=== PATIENT | female | born 1950 | race American Indian/Alaskan Native ===

== ENCOUNTER 2020-06-04 18:31 | Observation (INO) | payer MEDICARE ==
[2020-06-04] MEDS ORDERED: ASPIRIN 325 MG TAB PO ONE (19:58)
[2020-06-04 20:16] LABS: Basophils % (Auto) 0.5 % (0.0-1.8); Hematocrit 38.5 % (30.3-42.9); Hemoglobin 12.7 gm/dl (10.1-14.3); Lymphocytes # (Auto) 0.6 K/mm3 (1.2-5.4); Lymphocytes % (Auto) 7.8 % (13.4-35.0); Mean Corpuscular HGB Conc 33 % (30-34); Mean Corpuscular Volume 99 fl (79-97); Monocytes # (Auto) 0.4 K/mm3 (0.0-0.8); Platelet Count 264 K/mm3 (140-440); Red Blood Count 3.88 M/mm3 (3.65-5.03); Red Cell Distribution Width 14.9 % (13.2-15.2)
[2020-06-04 20:47] LABS: Blood Urea Nitrogen 14 mg/dL (7-17); Calcium 9.7 mg/dL (8.4-10.2); Hemolysis Index 15
[2020-06-04 20:52] LABS: BUN/Creatinine Ratio 35
--- NOTE | 2020-06-04 20:57 | XRay Report ---
CHEST 1 VIEW INDICATION / CLINICAL INFORMATION: Chest Pain. COMPARISON: None available. FINDINGS: SUPPORT DEVICES: None. HEART / MEDIASTINUM: No significant abnormality. LUNGS / PLEURA: No significant pulmonary or pleural abnormality. No pneumothorax. ADDITIONAL FINDINGS: No significant additional findings. IMPRESSION: No acute pulmonary or pleural abnormality Signer Name: Yung Jarquin MD FACR Signed: 06/04/2020 8:52 PM Workstation Name: [id number]
--- NOTE | 2020-06-04 21:40 | Emergency Department Report ---
ED Chest Pain HPI - General Chief Complaint: Chest Pain Stated Complaint: CHEST PAIN;EPIGASTRIC PAIN PUI?: Yes Time Seen by Provider: 06/04/20 21:28 Source: patient Mode of arrival: Stretcher Limitations: No Limitations - History of Present Illness Initial Comments: Patient is a 70-year-old female that presents emergency room with complaints of chest pain, shortness of breath, abdominal pain and constipation. Patient also complains of nausea.. Patient states that her symptoms started a week ago. Patient states that she was seen in another hospital and evaluated and discharged home 1 week ago. States her symptoms are continuing and worsening. Patient states the chest pain is in the center of her chest and left chest. Patient states that her chest pain is better with rest and worse with palpation. Patient states her chest pain is a 10 out of 10. Patient states her shortness of breath better with rest and worse with exertion. Patient states that her abdominal pain is generalized. Patient states that her abdominal pain is a 10 out of 10. Patient states that she has not had a bowel movement for 1 week. Patient states that her nausea is worsening. Patient states she took Dulcolax with no relief. Patient denies recent travel. Patient denies recent international travel. Patient denies exposure to the novel coronavirus. Patient denies sick contacts. Patient denies fever and chills. Patient denies cough. Patient denies diarrhea. Patient denies coming in contact with anybody with symptoms of the novel coronavirus. MD Complaint: chest pain -: Sudden Onset: during rest Pain Location: substernal, left chest Pain Radiation: none Severity: severe Severity scale (0 -10): 10 Quality: sharp Consistency: constant Improves With: rest Worsens With: palpation, movement re: nausea, dyspnea. denies: vomting, diaphoresis, sense of impending doom Other Symptoms: denies: cough, fever, syncope, rash, acid taste in mouth, leg swelling, palpitations, burping Aspirin use within the Past 7 Days: (1) Yes - Related Data On Oral Contraceptives: No Home Medications Medication Instructions Recorded Confirmed Last Taken Alendronate Sodium [Fosamax] 70 mg PO QWEEK 05/15/15 05/15/15 1 Day Ago ~09/17/15 70 Gabapentin [Neurontin] 300 mg PO Q8HR 05/15/15 05/15/15 1 Day Ago ~09/17/15 300 Potassium Chloride [K-Dur] 10 meq PO QDAY 05/15/15 05/15/15 1 Day Ago ~09/17/15 10 Vitamin D 05/15/15 05/15/15 1 Day Ago ~09/17/15 Previous Rx's Medication Instructions Recorded Last Taken Type Nitrofurantoin [place]/M-Cryst 100 mg PO Q12HR #14 capsule 05/16/15 1 Day Ago Rx [Macrobid CAP] ~09/17/15 100 HYDROcodone/APAP 5-325 [[place] 1 each PO Q8HR PRN #12 tablet 09/18/15 Unknown Rx 5/325] Ibuprofen [Motrin 800 MG tab] 800 mg PO Q8HR PRN #20 tablet 04/21/16 Unknown Rx Ondansetron [Zofran ODT TAB] 8 mg PO Q8HR #20 tab.rapdis 04/21/16 Unknown Rx oxyCODONE /ACETAMINOPHEN [Percocet 1 tab PO Q6HR PRN #20 tablet 04/21/16 Unknown Rx 5/325] Allergies Allergy/AdvReac Type Severity Reaction Status Date / Time No Known Allergies Allergy Verified 07/29/14 21:24 Heart Score - HEART Score History: Slightly suspicious EKG: Non-specific Age: > 65 Risk factors: No known risk factors Troponin: < normal limit HEART Score: 3 ED Review of Systems ROS: Stated complaint: CHEST PAIN;EPIGASTRIC PAIN Other details as noted in HPI Constitutional: denies: chills, fever Eyes: denies: eye pain, eye discharge, vision change ENT: denies: ear pain, throat pain Respiratory: see HPI, shortness of breath. denies: cough, wheezing Cardiovascular: as per HPI, chest pain. denies: palpitations Endocrine: no symptoms reported Gastrointestinal: abdominal pain, nausea, constipation. denies: vomiting, diarrhea Genitourinary: denies: urgency, dysuria, discharge Musculoskeletal: denies: back pain, joint swelling, arthralgia Skin: denies: rash, lesions Neurological: denies: headache, weakness, paresthesias Psychiatric: denies: anxiety, depression Hematological/Lymphatic: denies: easy bleeding, easy bruising ED Past Medical Hx - Past Medical History Previous Medical History?: Yes Hx Kidney Stones: Yes Additional medical history: chronic pain. peptic ulcers. Neuropathy - Surgical History Past Surgical History?: Yes Additional Surgical History: right knee, hysterectomy, left ovarian cyst removal - Family History Family history: no significant - Social History Smoking Status: Never Smoker Substance Use Type: None - Medications Home Medications: Home Medications Medication Instructions Recorded Confirmed Last Taken Type Alendronate Sodium [Fosamax] 70 mg PO QWEEK 05/15/15 05/15/15 1 Day Ago History ~09/17/15 70 Gabapentin [Neurontin] 300 mg PO Q8HR 05/15/15 05/15/15 1 Day Ago History ~09/17/15 300 Potassium Chloride [K-Dur] 10 meq PO QDAY 05/15/15 05/15/15 1 Day Ago History ~09/17/15 10 Vitamin D 05/15/15 05/15/15 1 Day Ago History ~09/17/15 Nitrofurantoin [place]/M-Cryst 100 mg PO Q12HR #14 capsule 05/16/15 1 Day Ago Rx [Macrobid CAP] ~09/17/15 100 HYDROcodone/APAP 5-325 [[place] 1 each PO Q8HR PRN #12 tablet 09/18/15 Unknown Rx 5/325] Ibuprofen [Motrin 800 MG tab] 800 mg PO Q8HR PRN #20 tablet 04/21/16 Unknown Rx Ondansetron [Zofran ODT TAB] 8 mg PO Q8HR #20 tab.rapdis 04/21/16 Unknown Rx oxyCODONE /ACETAMINOPHEN [Percocet 1 tab PO Q6HR PRN #20 tablet 04/21/16 Unknown Rx 5/325] ED Physical Exam - General Limitations: No Limitations General appearance: alert, in no apparent distress - Head Head exam: Present: atraumatic, normocephalic - Eye Eye exam: Present: normal appearance - ENT ENT exam: Present: mucous membranes moist - Neck Neck exam: Present: normal inspection - Respiratory Respiratory exam: Present: normal lung sounds bilaterally. Absent: respiratory distress - Cardiovascular Cardiovascular Exam: Present: regular rate, normal rhythm. Absent: systolic murmur, diastolic murmur, rubs, gallop - GI/Abdominal GI/Abdominal exam: Present: soft, tenderness (Generalized tenderness), normal bowel sounds - Extremities Exam Extremities exam: Present: normal inspection - Back Exam Back exam: Present: normal inspection - Neurological Exam Neurological exam: Present: alert, oriented X3 - Psychiatric Psychiatric exam: Present: normal affect, normal mood - Skin Skin exam: Present: warm, dry, intact, normal color. Absent: rash ED Course Vital Signs 06/04/20 06/04/20 06/04/20 19:44 21:46 22:00 Temperature 99.1 F Pulse Rate 83 81 89 Respiratory 18 17 13 Rate Blood Pressure 148/75 136/64 141/57 Blood Pressure [Left] O2 Sat by Pulse 100 98 98 Oximetry 06/04/20 06/04/20 06/04/20 22:07 22:16 22:30 Temperature Pulse Rate 71 77 75 Respiratory 22 18 17 Rate Blood Pressure 129/65 129/65 Blood Pressure 167/74 [Left] O2 Sat by Pulse 99 98 98 Oximetry 06/04/20 06/04/20 06/04/20 22:45 23:01 23:15 Temperature Pulse Rate 86 89 76 Respiratory 20 21 19 Rate Blood Pressure 106/67 132/63 132/63 Blood Pressure [Left] O2 Sat by Pulse 100 98 Oximetry 06/04/20 06/04/20 06/04/20 23:30 23:31 23:45 Temperature Pulse Rate 79 72 Respiratory 20 18 14 Rate Blood Pressure 120/55 120/55 Blood Pressure [Left] O2 Sat by Pulse 100 Oximetry 06/05/20 06/05/20 00:01 00:31 Temperature Pulse Rate 61 57 L Respiratory 14 11 L Rate Blood Pressure 120/55 120/55 Blood Pressure [Left] O2 Sat by Pulse Oximetry - Reevaluation(s) Reevaluation #1: Patient chest pain improved with Dilaudid. Patient states her nausea is better. Patient states she still having abdominal pain. CT is pending 06/04/20 22:24 Reevaluation #2: Patient states her pain is returning. Patient be given a low dose of Dilaudid. I discussed all results with patient. I discussed plan of care with patient. Patient agrees with plan of care and admission. Patient to be admitted to the hospitalist service. 06/04/20 23:25 - Consultations Consultation #1: Hospitalist consulted for admission. Hospitalist to admit patient. 06/04/20 23:25 SHERIF score - Sherif Score Age > 65: (1) Yes Aspirin use within the Past 7 Days: (1) Yes 3 or more CAD Risk Factors: (0) No 2 or more Angina events in past 24 hrs: (1) Yes Known CAD with more than 50% Stenosis: (0) No Elevated Cardiac Markers: (0) No ST Deviation Greater than 0.5mm: (0) No SHERIF Score: 3 ED Medical Decision Making - Lab Data Result diagrams: 06/04/20 20:05 06/04/20 20:05 - EKG Data -: EKG Interpreted by Me EKG shows normal: sinus rhythm, axis, intervals, QRS complexes, ST-T waves Rate: normal - Radiology Data Radiology results: report reviewed, image reviewed interpreted by me: Chest x-ray: No pneumonia, no pneumothorax, no foreign body, no osseous findings, no acute findings CHEST 1 VIEW INDICATION / CLINICAL INFORMATION: Chest Pain. COMPARISON: None available. FINDINGS: SUPPORT DEVICES: None. HEART / MEDIASTINUM: No significant abnormality. LUNGS / PLEURA: No significant pulmonary or pleural abnormality. No pneumothorax. ADDITIONAL FINDINGS: No significant additional findings. IMPRESSION: No acute pulmonary or pleural abnormality CT OF THE ABDOMEN AND PELVIS WITH INTRAVENOUS CONTRAST INDICATION / CLINICAL INFORMATION: Abdominal pain. TECHNIQUE: The patient received 100 cc Omnipaque [address] scans at this location are performed using CT dose reduction for ALARA by means of automated exposure control. COMPARISON: 04/21/16. FINDINGS: ABDOMEN: The liver, spleen, gallbladder, bile ducts, pancreas, adrenal glands and bowel demonstrate no significant abnormality. There are multiple small bilateral nonobstructive renal calculi. 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 There are mild atherosclerotic calcifications involving aorta and its branches without aneurysm. No adenopathy is seen. PELVIS: The distal ureters and urinary bladder are normal. The uterus and ovaries are not seen. There is no evidence of appendicitis or diverticulitis. No abnormal mass or fluid collection is seen. I do not identify a hernia. There is advanced spondylosis. IMPRESSION: 1. No acute intra-abdominal disease is identified. 2. Bilateral nonobstructive nephrolithiasis. CT ANGIOGRAPHY OF THE CHEST WITH INTRAVENOUS CONTRAST AND MULTIPLANAR MIP RECONSTRUCTIONS INDICATION / CLINICAL INFORMATION: Chest pain and shortness of breath. TECHNIQUE: Axial CT images were obtained after injection of 100 cc Omnipaque 350 IV contrast using CTA protocol. 3 plane MIP / 3D reconstructions were produced. All CT scans at this location are performed using CT dose reduction for ALARA by means of automated exposure control. COMPARISON: None available. FINDINGS: There is good opacification of the pulmonary arterial system bilaterally without intraluminal filling defect to suggest acute PTE. The thoracic aorta is normal in caliber without dissection. There is mild coronary artery calcification. The tracheobronchial tree is normal. There is mild scarring in both lung apices. Minimal subsegmental atelectasis is present in the lower lobes. The lungs are otherwise clear. There is no evidence of adenopathy or effusion. IMPRESSION: 1. No evidence of acute PTE. 2. Mild coronary artery calcification. - Medical Decision Making Patient is a 70-year-old female*complaints of chest pain, shortness of breath and abdominal pain. Patient also complained of nausea and constipation. Patient had labs done which were essentially unremarkable. Patient had a CT abdomen and CT angio chest. Patient's CTs were negative for acute findings. Patient had CT of the abdomen to rule out a small bowel obstruction . Nausea and constipation and abdominal pain. Patient was tender on exam to her abdomen. Patient had a CTA of the chest since the patient complained of chest pain or shortness of breath and had such severe chest pain and difficulty breathing. Patient's chest pain and abdominal pain were treated with fluids, Dilaudid and Zofran. Patient required 2 doses of Dilaudid. Patient still complains of pain. Patient admitted to the hospital service for further evaluation and treatment and rule out ACS. Patient's heart score was elevated.. . - Differential Diagnosis Chest pain, ACS, S OB, abdominal pain, SBO, constipation Critical Care Time: Yes Critical care time in (mins) excluding proc time.: 35 Critical care attestation.: If time is entered above; I have spent that time in minutes in the direct care of this critically ill patient, excluding procedure time. Critical Care Time: 35 minutes ED Disposition Clinical Impression: SOB (shortness of breath), Acute constipation, Nausea Abdominal pain Qualifiers: Abdominal location: generalized Qualified Code(s): R10.84 - Generalized abdominal pain Chest pain Qualifiers: Chest pain type: unspecified Qualified Code(s): R07.9 - Chest pain, unspecified Disposition: 09 OP ADMIT IP TO THIS HOSP Is pt being admited?: Yes Does the pt Need Aspirin: No Condition: Critical Time of Disposition: 23:23
[2020-06-04] MEDS ORDERED: ONDANSETRON 4 MG/2 ML INJ IV ONE (21:49)
[2020-06-04] MEDS ORDERED: HYDROmorphone 1 MG/1 ML INJ IV ONE ×2 (21:49→23:46)
[2020-06-04] MEDS ORDERED: SODIUM CHLORIDE 0.9% 1000 ML 1,000 ML IV ONE (21:49)
--- NOTE | 2020-06-04 22:59 | Cat Scan Report ---
CT ANGIOGRAPHY OF THE CHEST WITH INTRAVENOUS CONTRAST AND MULTIPLANAR MIP RECONSTRUCTIONS INDICATION / CLINICAL INFORMATION: Chest pain and shortness of breath. TECHNIQUE: Axial CT images were obtained after injection of 100 cc Omnipaque 350 IV contrast using CTA protocol. 3 plane MIP / 3D reconstructions were produced. All CT scans at this location are performed using CT dose reduction for ALARA by means of automated exposure control. COMPARISON: None available. FINDINGS: There is good opacification of the pulmonary arterial system bilaterally without intraluminal filling defect to suggest acute PTE. The thoracic aorta is normal in caliber without dissection. There is mi ld coronary artery calcification. The tracheobronchial tree is normal. There is mild scarring in both lung apices. Minimal subsegmental atelectasis is present in the lower lobes. The lungs are otherwise clear. There is no evidence of ad enopathy or effusion. IMPRESSION: 1. No evidence of acute PTE. 2. Mild coronary artery calcification. Signer Name: Alber Jameson MD Signed: 06/04/2020 10:55 PM Workstation Name: [id number]
--- NOTE | 2020-06-04 23:04 | Cat Scan Report ---
CT OF THE ABDOMEN AND PELVIS WITH INTRAVENOUS CONTRAST INDICATION / CLINICAL INFORMATION: Abdominal pain. TECHNIQUE: The patient received 100 cc Omnipaque [address] scans at this location are performed using CT dose reduction for ALARA by means of automated exposure control. COMPARISON: 04/21/16. FINDINGS: ABDOMEN: The liver, spleen, gallbladder, bile ducts, pancreas, adrenal glands and bowel demonstrate n o significant abnormality. There are multiple small bilateral nonobstructive renal calculi. 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 There are mild atherosclerotic calcificat ions involving aorta and its branches without aneurysm. No adenopathy is seen. PELVIS: The distal ureters and urinary bladder are normal. The uterus and ovaries are not seen. There is no evidence of appendicitis or diverticulitis. No abnormal mass or fluid collection is seen. I do not identify a hernia. There is advanced spondylosis. IMPRESSION: 1. No acute intra-abdominal disease is identified. 2. Bilateral nonobstructive nephrolithiasis. Signer Name: Alber Jameson MD Signed: 06/04/2020 10:59 PM Workstation Name: [id number]
[2020-06-05] MEDS ORDERED: MORPHINE 4 MG/1 ML INJ IV PRN (00:16)
[2020-06-05] MEDS ORDERED: NITROGLYCERIN 0.4 MG TAB SUBL SL PRN (00:16)
--- NOTE | 2020-06-05 00:24 | History and Physical Report ---
History of Present Illness Date of examination: 06/05/20 Date of admission: 06/04/20 23:47 Chief complaint: Chest pain Abdominal pain History of present illness: 70-year-old female was brought to emergency room with complaints of chest pain, shortness of breath, abdominal pain and constipation. Patient also complains of nausea. Patient complained of chest pain which is 10/10 in the center of the chest and left chest as stated shortness of breath for a week Patient states that she was seen in another hospital and evaluated and discharged home 1 week ago. States her symptoms are continuing and worsening. Patient states that her abdominal pain is generalized. Patient states that her abdominal pain is a 10 out of 10. Patient states that she has not had a bowel movement for 1 week. Patient states that her nausea is worsening. Patient states she took Dulcolax with no relief. In the emergency room initial cardiac enzyme is negative. And CT scan of the abdomen pelvis shows no acute intra-abdominal abnormality Medications and Allergies Allergies Allergy/AdvReac Type Severity Reaction Status Date / Time No Known Allergies Allergy Verified 07/29/14 21:24 Home Medications Medication Instructions Recorded Confirmed Last Taken Type Alendronate Sodium [Fosamax] 70 mg PO QWEEK 05/15/15 05/15/15 1 Day Ago History ~09/17/15 70 Gabapentin [Neurontin] 300 mg PO Q8HR 05/15/15 05/15/15 1 Day Ago History ~09/17/15 300 Potassium Chloride [K-Dur] 10 meq PO QDAY 05/15/15 05/15/15 1 Day Ago History ~09/17/15 10 Vitamin D 05/15/15 05/15/15 1 Day Ago History ~09/17/15 Nitrofurantoin [place]/M-Cryst 100 mg PO Q12HR #14 capsule 05/16/15 1 Day Ago Rx [Macrobid CAP] ~09/17/15 100 HYDROcodone/APAP 5-325 [[place] 1 each PO Q8HR PRN #12 tablet 09/18/15 Unknown Rx 5/325] Ibuprofen [Motrin 800 MG tab] 800 mg PO Q8HR PRN #20 tablet 04/21/16 Unknown Rx Ondansetron [Zofran ODT TAB] 8 mg PO Q8HR #20 tab.rapdis 04/21/16 Unknown Rx oxyCODONE /ACETAMINOPHEN [Percocet 1 tab PO Q6HR PRN #20 tablet 04/21/16 Unknown Rx 5/325] Review of Systems Cardiovascular: chest pain, shortness of breath Respiratory: dyspnea on exertion Gastrointestinal: abdominal pain, nausea Exam - Constitutional Vitals: Temp Pulse Resp BP Pulse Ox 99.1 F 61 14 120/55 100 06/04/20 19:44 06/05/20 00:01 06/05/20 00:01 06/05/20 00:01 06/04/20 23:31 General appearance: Present: no acute distress, well-nourished - EENT Eyes: Present: PERRL ENT: hearing intact, clear oral mucosa - Neck Neck: Present: supple, normal ROM - Respiratory Respiratory effort: normal Respiratory: bilateral: diminished - Cardiovascular Heart Sounds: Present: S1 & S2. Absent: rub, click - Extremities Extremities: pulses symmetrical, No edema Peripheral Pulses: within normal limits - Abdominal General gastrointestinal: Present: soft, non-tender, non-distended, normal bowel sounds Female genitourinary: Present: normal - Integumentary Integumentary: Present: clear, warm, dry - Musculoskeletal Musculoskeletal: gait normal, strength equal bilaterally - Psychiatric Psychiatric: appropriate mood/affect, intact judgment & insight - Neurologic Neurologic: CNII-XII intact, moves all extremities HEART Score - HEART Score EKG: Non-specific Age: > 65 Risk factors: No known risk factors Troponin: Troponin T < 0.010 ng/mL (0.00-0.029) 06/04/20 20:05 Troponin: < normal limit Results - Labs CBC & Chem 7: 06/04/20 20:05 06/04/20 20:05 Labs: Laboratory Last Values WBC 7.3 K/mm3 (4.5-11.0) 06/04/20 20:05 RBC 3.88 M/mm3 (3.65-5.03) 06/04/20 20:05 Hgb 12.7 gm/dl (10.1-14.3) 06/04/20 20:05 Hct 38.5 % (30.3-42.9) 06/04/20 20:05 MCV 99 fl (79-97) H 06/04/20 20:05 MCH 33 pg (28-32) H 06/04/20 20:05 MCHC 33 % (30-34) 06/04/20 20:05 RDW 14.9 % (13.2-15.2) 06/04/20 20:05 Plt Count 264 K/mm3 (140-440) 06/04/20 20:05 Lymph % (Auto) 7.8 % (13.4-35.0) L 06/04/20 20:05 [place] % (Auto) 5.0 % (0.0-7.3) 06/04/20 20:05 Eos % (Auto) 0.0 % (0.0-4.3) 06/04/20 20:05 Baso % (Auto) 0.5 % (0.0-1.8) 06/04/20 20:05 Lymph # (Auto) 0.6 K/mm3 (1.2-5.4) L 06/04/20 20:05 [place] # (Auto) 0.4 K/mm3 (0.0-0.8) 06/04/20 20:05 Eos # (Auto) 0.0 K/mm3 (0.0-0.4) 06/04/20 20:05 Baso # (Auto) 0.0 K/mm3 (0.0-0.1) 06/04/20 20:05 Seg Neutrophils % 86.7 % (40.0-70.0) H 06/04/20 20:05 Seg Neutrophils # 6.3 K/mm3 (1.8-7.7) 06/04/20 20:05 Sodium 145 mmol/L (137-145) 06/04/20 20:05 Potassium 3.6 mmol/L (3.6-5.0) 06/04/20 20:05 Chloride 104.3 mmol/L (98-107) 06/04/20 20:05 Carbon Dioxide 27 mmol/L (22-30) 06/04/20 20:05 Anion Gap 17 mmol/L 06/04/20 20:05 BUN 14 mg/dL (7-17) 06/04/20 20:05 Creatinine 0.4 mg/dL (0.6-1.2) L 06/04/20 20:05 Estimated GFR > 60 ml/min 06/04/20 20:05 BUN/Creatinine Ratio 35 % 06/04/20 20:05 Glucose 117 mg/dL (65-100) H 06/04/20 20:05 Calcium 9.7 mg/dL (8.4-10.2) 06/04/20 20:05 Troponin T < 0.010 ng/mL (0.00-0.029) 06/04/20 20:05 - Imaging and Cardiology CT scan - abdomen: image reviewed Assessment and Plan - Patient Problems (1) Chest pain Current Visit: Yes Status: Acute Qualifiers: Chest pain type: unspecified Qualified Code(s): R07.9 - Chest pain, unspecified Plan to address problem: Admit the patient to the cardiac telemetry. Put on chest pain pathway. Aspirin 325 mg p.o. daily. Lipitor 40 mg p.o. daily. Nitroglycerin as needed. Due to the serial cardiac enzyme. We also do a Lexiscan. Please consult cardiology if needed. Heparin 5000 units subcu every 8 hours for DVT prophylaxis and Protonix 40 mg p.o. daily for GI prophylaxis. (2) SOB (shortness of breath) Current Visit: Yes Status: Acute Plan to address problem: Oxygen valacyclovir 3 L/min. DuoNeb by nebulizer every 4 hours as needed. We will monitor the patient very closely (3) Abdominal pain Current Visit: Yes Status: Acute Qualifiers: Abdominal location: generalized Plan to address problem: Keep the patient nothing by mouth. IV fluid D5 half-normal saline at the rate of 100 cc/h. Protonix 40 mg p.o. daily. Zofran 4 mg IV every 6 hours as needed. Morphine 1 to 2 mg IV every [address] scan of the abdomen and pelvis shows no acute intracranial abnormality. Recheck CBC BMP in the morning
[2020-06-05 02:25] LABS: Bacteria,Urine 2+ /HPF (Negative); Bilirubin,Urine NEG (Negative); Blood,Urine SM (Negative); Color,Urine Yellow (Yellow); Mucus,Urine FEW /HPF; Urobilinogen,Urine < 2.0 mg/dL (<2.0)
[2020-06-05] MEDS: D5W/0.45% NACL 1,000 ML IV SCH ×2 (02:52→11:41)
[2020-06-05 04:52] LABS: Basophils % (Auto) 0.3 % (0.0-1.8); Hematocrit 36.9 % (30.3-42.9); Hemoglobin 12.3 gm/dl (10.1-14.3); Lymphocytes % (Auto) 14.1 % (13.4-35.0); Mean Corpuscular HGB Conc 33 % (30-34); Mean Corpuscular Volume 99 fl (79-97); Monocytes # (Auto) 0.6 K/mm3 (0.0-0.8); Monocytes % (Auto) 8.9 % (0.0-7.3); Platelet Count 259 K/mm3 (140-440); Red Blood Count 3.73 M/mm3 (3.65-5.03)
[2020-06-05 05:53] LABS: BUN/Creatinine Ratio 25; Blood Urea Nitrogen 10 mg/dL (7-17); Calcium 8.9 mg/dL (8.4-10.2); Chol/HDL Ratio 3.44 %; HDL Cholesterol 61 mg/dL (40-59); Hemolysis Index 2; LDL Cholesterol,Direct 152 mg/dL (50-130)
[2020-06-05] MEDS: HEPARIN 5,000 UNIT/1 ML VIAL SUB-Q SCH ×3 (06:41→21:43)
[2020-06-05] MEDS: ONDANSETRON 4 MG/2 ML INJ IV PRN (07:57)
--- NOTE | 2020-06-05 08:02 | Progress Note ---
Assessment and Plan Assessment and plan: (1) Chest pain Current Visit: Yes Status: Acute Qualifiers: Chest pain type: unspecified Qualified Code(s): R07.9 - Chest pain, unspecified Plan to address problem: Admit the patient to the cardiac telemetry. Put on chest pain pathway. Aspirin 325 mg p.o. daily. Lipitor 40 mg p.o. daily. Nitroglycerin as needed. Due to the serial cardiac enzyme. We also do a Lexiscan. Heparin 5000 units subcu every 8 hours for DVT prophylaxis and Protonix 40 mg p.o. daily for GI prophylaxis. (2) SOB (shortness of breath) Current Visit: Yes Status: Acute Plan to address problem: Oxygen 3 L/min via intranasal cannula. DuoNeb by nebulizer every 4 hours as nee ded. We will monitor the patient very closely (3) Abdominal pain Current Visit: Yes Status: Acute Qualifiers: Abdominal location: generalized Plan to address problem: Keep the patient nothing by mouth. IV fluid D5 half-normal saline at the rate of 100 cc/h. Protonix 40 mg p.o. daily. Zofran 4 mg IV every 6 hours as needed. Morphine 1 to 2 mg IV every [address] scan of the abdomen and pelvis shows no acute intracranial abnormality. Recheck CBC BMP in the morning 06/05/2020 -CT abdomen and pelvis, CTA chest is unremarkable. Labs are unremarkable. Baldemar najera is still complaining severe abdominal pain. I change morphine to Dilaudid, and ketorolac, I ordered KUB and will follow. -We we will follow the stress test. -Patient with hyperlipidemia and on Lipitor Disposition; per clinical course History Interval history: Patient was seen and evaluated this morning Patient is complaining severe abdominal pain Chest pain is getting better Hospitalist Physical - Physical exam Narrative exam: Not in cardiopulmonary distress. The patient appeared well nourished and normally developed. Vital signs as documented. Head exam is unremarkable. No scleral icterus . Neck is without jugular venous distension, thyromegaly, or carotid bruits. Lungs are clear to auscultation. Cardiac exam reveals regular rate and Rhythm. Abdominal exam reveals abdominal tenderness. Extremities are nonedematous and both femoral and pedal pulses are normal. 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 No focal weakness. - Constitutional Vitals: Temp Pulse Resp BP Pulse Ox 98.8 F 57 L 16 137/58 98 06/05/20 04:38 06/05/20 04:38 06/05/20 04:38 06/05/20 04:38 06/05/20 04:38 General appearance: Present: no acute distress, well-nourished HEART Score - HEART Score EKG: Non-specific Age: > 65 Risk factors: No known risk factors Troponin: Troponin T < 0.010 ng/mL (0.00-0.029) 06/05/20 06:01 Troponin: < normal limit Results - Labs CBC & Chem 7: 06/05/20 04:17 06/05/20 04:17 Labs: Laboratory Last Values WBC 6.8 K/mm3 (4.5-11.0) 06/05/20 04:17 RBC 3.73 M/mm3 (3.65-5.03) 06/05/20 04:17 Hgb 12.3 gm/dl (10.1-14.3) 06/05/20 04:17 Hct 36.9 % (30.3-42.9) 06/05/20 04:17 MCV 99 fl (79-97) H 06/05/20 04:17 MCH 33 pg (28-32) H 06/05/20 04:17 MCHC 33 % (30-34) 06/05/20 04:17 RDW 15.0 % (13.2-15.2) 06/05/20 04:17 Plt Count 259 K/mm3 (140-440) 06/05/20 04:17 Lymph % (Auto) 14.1 % (13.4-35.0) 06/05/20 04:17 [place] % (Auto) 8.9 % (0.0-7.3) H 06/05/20 04:17 Eos % (Auto) 0.0 % (0.0-4.3) 06/05/20 04:17 Baso % (Auto) 0.3 % (0.0-1.8) 06/05/20 04:17 Lymph # (Auto) 1.0 K/mm3 (1.2-5.4) L 06/05/20 04:17 [place] # (Auto) 0.6 K/mm3 (0.0-0.8) 06/05/20 04:17 Eos # (Auto) 0.0 K/mm3 (0.0-0.4) 06/05/20 04:17 Baso # (Auto) 0.0 K/mm3 (0.0-0.1) 06/05/20 04:17 Seg Neutrophils % 76.7 % (40.0-70.0) H 06/05/20 04:17 Seg Neutrophils # 5.2 K/mm3 (1.8-7.7) 06/05/20 04:17 Sodium 143 mmol/L (137-145) 06/05/20 04:17 Potassium 3.3 mmol/L (3.6-5.0) L 06/05/20 04:17 Chloride 103.2 mmol/L (98-107) 06/05/20 04:17 Carbon Dioxide 31 mmol/L (22-30) H 06/05/20 04:17 Anion Gap 12 mmol/L 06/05/20 04:17 BUN 10 mg/dL (7-17) 06/05/20 04:17 Creatinine 0.4 mg/dL (0.6-1.2) L 06/05/20 04:17 Estimated GFR > 60 ml/min 06/05/20 04:17 BUN/Creatinine Ratio 25 % 06/05/20 04:17 Glucose 120 mg/dL (65-100) H 06/05/20 04:17 Calcium 8.9 mg/dL (8.4-10.2) 06/05/20 04:17 Troponin T < 0.010 ng/mL (0.00-0.029) 06/05/20 06:01 Triglycerides 38 mg/dL (2-149) 06/05/20 04:17 Cholesterol 210 mg/dL (50-199) H 06/05/20 04:17 LDL Cholesterol Direct 152 mg/dL (50-130) H 06/05/20 04:17 HDL Cholesterol 61 mg/dL (40-59) H 06/05/20 04:17 Cholesterol/HDL Ratio 3.44 % 06/05/20 04:17 Urine Color Yellow (Yellow) 06/05/20 00:23 Urine Turbidity Slightly-cloudy (Clear) 06/05/20 00:23 Urine pH 7.0 (5.0-7.0) 06/05/20 00:23 Ur Specific [place] 1.012 (1.003-1.030) 06/05/20 00:23 Urine Protein 100 mg/dl mg/dL (Negative) 06/05/20 00:23 Urine Glucose (UA) Neg mg/dL (Negative) 06/05/20 00:23 Urine Ketones Tr mg/dL (Negative) 06/05/20 00:23 Urine Blood Sm (Negative) 06/05/20 00:23 Urine Nitrite Pos (Negative) 06/05/20 00:23 Urine Bilirubin Neg (Negative) 06/05/20 00:23 Urine Urobilinogen < 2.0 mg/dL (<2.0) 06/05/20 00:23 Ur Leukocyte Esterase Tr (Negative) 06/05/20 00:23 Urine WBC (Auto) 7.0 /HPF (0.0-6.0) H 06/05/20 00:23 Urine RBC (Auto) 11.0 /HPF (0.0-6.0) 06/05/20 00:23 U Epithel Cells (Auto) < 1.0 /HPF (0-13.0) 06/05/20 00:23 Urine Bacteria (Auto) 2+ /HPF (Negative) 06/05/20 00:23 Urine Mucus Few /HPF 06/05/20 00:23 Cantu/IV: Voiding Method External Female Catheter IV Catheter Type [Right INT / Saline Lock Antecubital] Active Medications - Current Medications Current Medications: Generic Name Dose Route Start Last Admin Trade Name Freq PRN Reason Stop Dose Admin Acetaminophen 650 mg 06/05/20 00:16 Acetaminophen 325 Mg Tab PO Q6H PRN Pain, Mild (1-3) Aspirin 325 mg 06/06/20 10:00 Aspirin Ec 325 Mg Tab PO QDAY BALJIT Atorvastatin Calcium 40 mg 06/05/20 22:00 Atorvastatin 40 Mg Tab PO QHS BALJIT Heparin Sodium (Porcine) 5,000 unit 06/05/20 06:00 06/05/20 06:41 Heparin 5,000 Unit/1 Ml Vial SUB-Q 5,000 unit Q8HR BALJIT Administration Dextrose/Sodium Chloride 1,000 mls @ 100 mls/hr 06/05/20 01:00 06/05/20 02:52 D5/0.45ns IV 100 mls/hr DIRECT BALJIT Administration Morphine Sulfate 2 mg 06/05/20 00:16 06/05/20 07:56 Morphine 4 Mg/1 Ml Inj IV 2 mg Q5MIN PRN Administration Chest Pain Nitroglycerin 0.4 mg 06/05/20 00:16 Nitroglycerin 0.4 Mg Tab Subl SL Q5M PRN Chest Pain Ondansetron HCl 4 mg 06/05/20 00:27 06/05/20 07:57 Ondansetron 4 Mg/2 Ml Inj IV 4 mg Q8H PRN Administration Nausea And Vomiting Pantoprazole Sodium 40 mg 06/05/20 10:00 Pantoprazole 40 Mg Tab PO QDAY BALJIT Sodium Chloride 10 ml 06/05/20 00:16 Sodium Chloride 0.9% 10 Ml Flush Syringe IV PRN PRN LINE FLUSH
[2020-06-05] MEDS: PANTOPRAZOLE 40 MG TAB PO SCH (09:53)
[2020-06-05] MEDS: METOCLOPRAMIDE 10 MG/2 ML INJ IV SCH ×3 (11:36→21:43)
[2020-06-05] MEDS: HYDROmorphone 1 MG/1 ML INJ IV PRN ×3 (11:36→22:48)
--- NOTE | 2020-06-05 11:51 | XRay Report ---
ABDOMEN 1 VIEW INDICATION / CLINICAL INFORMATION: Abdominal pain. COMPARISON: None available. FINDINGS: Nonspecific bowel gas pattern. No definite evidence of obstruction Signer Name: Yung Jarquin MD FACWhitney Signed: 06/05/2020 11:46 AM Workstation Name: [id number]
[2020-06-05] MEDS ORDERED: FLU VACC QUAD 2020-2021 (6 months +)/PF 60 0.5 ML SYRINGE IM ONE (12:00)
[2020-06-05] MEDS: ACETAMINOPHEN 325 MG TAB PO PRN (15:22)
[2020-06-05] MEDS: KETOROLAC 30 MG/1 ML INJ IV PRN (15:23)
[2020-06-05] MEDS ORDERED: ZOLPIDEM 5 MG TAB PO PRN (23:57)
[2020-06-06] MEDS ORDERED: ZOLPIDEM 5 MG TAB PO ONE (00:15)
[2020-06-06] MEDS: D5W/0.45% NACL 1,000 ML IV SCH ×2 (02:02→17:33)
[2020-06-06] MEDS: ONDANSETRON 4 MG/2 ML INJ IV PRN (02:03)
[2020-06-06] MEDS: HEPARIN 5,000 UNIT/1 ML VIAL SUB-Q SCH ×3 (05:46→21:51)
[2020-06-06] MEDS: HYDROmorphone 1 MG/1 ML INJ IV PRN ×3 (05:53→17:32)
[2020-06-06] MEDS: METOCLOPRAMIDE 10 MG/2 ML INJ IV SCH ×2 (08:21→11:35)
[2020-06-06] MEDS: KETOROLAC 30 MG/1 ML INJ IV PRN ×2 (08:22→21:52)
--- NOTE | 2020-06-06 08:42 | Progress Note ---
Assessment and Plan Assessment and plan: (1) Chest pain Current Visit: Yes Status: Acute Qualifiers: Chest pain type: unspecified Qualified Code(s): R07.9 - Chest pain, unspecified Plan to address problem: Admit the patient to the cardiac telemetry. Put on chest pain pathway. Aspirin 325 mg p.o. daily. Lipitor 40 mg p.o. daily. Nitroglycerin as needed. Due to the serial cardiac enzyme. We also do a Lexiscan. Heparin 5000 units subcu every 8 hours for DVT prophylaxis and Protonix 40 mg p.o. daily for GI prophylaxis. (2) SOB (shortness of breath) Current Visit: Yes Status: Acute Plan to address problem: Oxygen 3 L/min via intranasal cannula. DuoNeb by nebulizer every 4 hours as nee ded. We will monitor the patient very closely (3) Abdominal pain Current Visit: Yes Status: Acute Qualifiers: Abdominal location: generalized Plan to address problem: Keep the patient nothing by mouth. IV fluid D5 half-normal saline at the rate of 100 cc/h. Protonix 40 mg p.o. daily. Zofran 4 mg IV every 6 hours as needed. Morphine 1 to 2 mg IV every [address] scan of the abdomen and pelvis shows no acute intracranial abnormality. Recheck CBC BMP in the morning 06/05/2020 -CT abdomen and pelvis, CTA chest is unremarkable. Labs are unremarkable. Baldemar najera is still complaining severe abdominal pain. I change morphine to Dilaudid, and ketorolac, I ordered KUB and will follow. -We we will follow the stress test. -Patient with hyperlipidemia and on Lipitor Disposition; per clinical course 06/06/2020 -Patient is still complaining severe abdominal pain, labs, and imaging are pending. The cause of severe abdominal pain is unknown, GI consult placed -Chest x-ray of abdomen showed nonspecific gas pattern but no definite obstruction -Continue the above medication for pain control -Pending stress test -Continue Lipitor for hyperlipidemia Disposition; per clinical course History Interval history: Patient was seen and evaluated this morning Patient is complaining severe abdominal pain Chest pain is getting better Hospitalist Physical - Physical exam Narrative exam: Not in cardiopulmonary distress. The patient appeared well nourished and normally developed. Vital signs as documented. Head exam is unremarkable. No scleral icterus . Neck is without jugular venous distension, thyromegaly, or carotid bruits. Lungs are clear to auscultation. Cardiac exam reveals regular rate and Rhythm. Abdominal exam reveals abdominal tenderness. Extremities are nonedematous and both femoral and pedal pulses are normal. 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 No focal weakness. - Constitutional Vitals: Temp Pulse Resp BP Pulse Ox 98.4 F 62 18 131/61 97 06/06/20 08:16 06/06/20 08:16 06/06/20 08:16 06/06/20 08:16 06/06/20 08:16 General appearance: Present: no acute distress, well-nourished HEART Score - HEART Score EKG: Non-specific Age: > 65 Risk factors: No known risk factors Troponin: Troponin T < 0.010 ng/mL (0.00-0.029) 06/05/20 06:01 Troponin: < normal limit Results - Labs CBC & Chem 7: 06/05/20 04:17 06/05/20 04:17 Labs: Laboratory Last Values WBC 6.8 K/mm3 (4.5-11.0) 06/05/20 04:17 RBC 3.73 M/mm3 (3.65-5.03) 06/05/20 04:17 Hgb 12.3 gm/dl (10.1-14.3) 06/05/20 04:17 Hct 36.9 % (30.3-42.9) 06/05/20 04:17 MCV 99 fl (79-97) H 06/05/20 04:17 MCH 33 pg (28-32) H 06/05/20 04:17 MCHC 33 % (30-34) 06/05/20 04:17 RDW 15.0 % (13.2-15.2) 06/05/20 04:17 Plt Count 259 K/mm3 (140-440) 06/05/20 04:17 Lymph % (Auto) 14.1 % (13.4-35.0) 06/05/20 04:17 [place] % (Auto) 8.9 % (0.0-7.3) H 06/05/20 04:17 Eos % (Auto) 0.0 % (0.0-4.3) 06/05/20 04:17 Baso % (Auto) 0.3 % (0.0-1.8) 06/05/20 04:17 Lymph # (Auto) 1.0 K/mm3 (1.2-5.4) L 06/05/20 04:17 [place] # (Auto) 0.6 K/mm3 (0.0-0.8) 06/05/20 04:17 Eos # (Auto) 0.0 K/mm3 (0.0-0.4) 06/05/20 04:17 Baso # (Auto) 0.0 K/mm3 (0.0-0.1) 06/05/20 04:17 Seg Neutrophils % 76.7 % (40.0-70.0) H 06/05/20 04:17 Seg Neutrophils # 5.2 K/mm3 (1.8-7.7) 06/05/20 04:17 Sodium 143 mmol/L (137-145) 06/05/20 04:17 Potassium 3.3 mmol/L (3.6-5.0) L 06/05/20 04:17 Chloride 103.2 mmol/L (98-107) 06/05/20 04:17 Carbon Dioxide 31 mmol/L (22-30) H 06/05/20 04:17 Anion Gap 12 mmol/L 06/05/20 04:17 BUN 10 mg/dL (7-17) 06/05/20 04:17 Creatinine 0.4 mg/dL (0.6-1.2) L 06/05/20 04:17 Estimated GFR > 60 ml/min 06/05/20 04:17 BUN/Creatinine Ratio 25 % 06/05/20 04:17 Glucose 120 mg/dL (65-100) H 06/05/20 04:17 Calcium 8.9 mg/dL (8.4-10.2) 06/05/20 04:17 Troponin T < 0.010 ng/mL (0.00-0.029) 06/05/20 06:01 Triglycerides 38 mg/dL (2-149) 06/05/20 04:17 Cholesterol 210 mg/dL (50-199) H 06/05/20 04:17 LDL Cholesterol Direct 152 mg/dL (50-130) H 06/05/20 04:17 HDL Cholesterol 61 mg/dL (40-59) H 06/05/20 04:17 Cholesterol/HDL Ratio 3.44 % 06/05/20 04:17 Urine Color Yellow (Yellow) 06/05/20 00:23 Urine Turbidity Slightly-cloudy (Clear) 06/05/20 00:23 Urine pH 7.0 (5.0-7.0) 06/05/20 00:23 Ur Specific [place] 1.012 (1.003-1.030) 06/05/20 00:23 Urine Protein 100 mg/dl mg/dL (Negative) 06/05/20 00:23 Urine Glucose (UA) Neg mg/dL (Negative) 06/05/20 00:23 Urine Ketones Tr mg/dL (Negative) 06/05/20 00:23 Urine Blood Sm (Negative) 06/05/20 00:23 Urine Nitrite Pos (Negative) 06/05/20 00:23 Urine Bilirubin Neg (Negative) 06/05/20 00:23 Urine Urobilinogen < 2.0 mg/dL (<2.0) 06/05/20 00:23 Ur Leukocyte Esterase Tr (Negative) 06/05/20 00:23 Urine WBC (Auto) 7.0 /HPF (0.0-6.0) H 06/05/20 00:23 Urine RBC (Auto) 11.0 /HPF (0.0-6.0) 06/05/20 00:23 U Epithel Cells (Auto) < 1.0 /HPF (0-13.0) 06/05/20 00:23 Urine Bacteria (Auto) 2+ /HPF (Negative) 06/05/20 00:23 Urine Mucus Few /HPF 06/05/20 00:23 Cantu/IV: Voiding Method External Female Catheter IV Catheter Type [Right INT / Saline Lock Antecubital] Active Medications - Current Medications Current Medications: Generic Name Dose Route Start Last Admin Trade Name Freq PRN Reason Stop Dose Admin Acetaminophen 650 mg 06/05/20 00:16 06/05/20 15:22 Acetaminophen 325 Mg Tab PO 650 mg Q6H PRN Administration Pain, Mild (1-3) Aspirin 325 mg 06/06/20 10:00 Aspirin Ec 325 Mg Tab PO QDAY BALJIT Atorvastatin Calcium 40 mg 06/05/20 22:00 06/05/20 21:43 Atorvastatin 40 Mg Tab PO 40 mg QHS BALJIT Administration Heparin Sodium (Porcine) 5,000 unit 06/05/20 06:00 06/06/20 05:46 Heparin 5,000 Unit/1 Ml Vial SUB-Q 5,000 unit Q8HR BALJIT Administration Hydromorphone HCl 1 mg 06/05/20 09:55 06/06/20 05:53 Hydromorphone 1 Mg/1 Ml Inj IV 1 mg Q4H PRN Administration Pain , Severe (7-10) Dextrose/Sodium Chloride 1,000 mls @ 100 mls/hr 06/05/20 01:00 06/06/20 02:02 D5/0.45ns IV 100 mls/hr DIRECT BALJIT Administration Ketorolac Tromethamine 15 mg 06/05/20 09:55 06/06/20 08:22 Ketorolac 30 Mg/1 Ml Inj IV 06/10/20 11:59 15 mg Q6HR PRN Administration pain Metoclopramide HCl 5 mg 06/05/20 11:30 06/06/20 08:21 Metoclopramide 10 Mg/2 Ml Inj IV 5 mg ACHS BALJIT Administration Nitroglycerin 0.4 mg 06/05/20 00:16 Nitroglycerin 0.4 Mg Tab Subl SL Q5M PRN Chest Pain Ondansetron HCl 4 mg 06/05/20 00:27 06/06/20 02:03 Ondansetron 4 Mg/2 Ml Inj IV 4 mg Q8H PRN Administration Nausea And Vomiting Pantoprazole Sodium 40 mg 06/05/20 10:00 06/05/20 09:53 Pantoprazole 40 Mg Tab PO 40 mg QDAY BALJIT Administration Sodium Chloride 10 ml 06/05/20 00:16 Sodium Chloride 0.9% 10 Ml Flush Syringe IV PRN PRN LINE FLUSH
[2020-06-06] MEDS: cefTRIAXone/NS 1 GM/50 ML 1 GM/50 ML BAG IV SCH (10:27)
[2020-06-06] MEDS: ASPIRIN EC 325 MG TAB PO SCH (10:27)
[2020-06-06] MEDS: PANTOPRAZOLE 40 MG TAB PO SCH (10:27)
--- NOTE | 2020-06-06 15:36 | Gastroenterology Consultation ---
History of Present Illness - Reason for Consult Consult date: 06/06/20 Abdominal Pain Requesting physician: MICKY CORREA - History of Present Illness The patient was last seen in our clinic in 2014, for a hx of PUD (multiple times; hx of NSAID abuse). We are consulted today for abdominal pain; of note, the patient appears to be mildly delerious or demented; she is very vague about symptoms, dates, and procedures. She has not been hospitalized here or at [place] in the last few years for her stomach. She says the pain is mostly in the periumbilical area, and radiates through the abdomen (similar to prior PUD episodes). She denies PPI therapy (or NSAID abuse) at home. Her labs and and abdomen CT were unremarkable except for moderate atherosclerosis at the origin of the SMA and celiac arteries. The patient does not want to eat, because it "makes my stomach uncomfortable" and she is very thin. She says she is mildly constipated as well, but there was no gross stool retention on the CT scan. Past History Past Medical History: other (PUD, Neuropathy) Past Surgical History: hysterectomy Social history: denies: smoking, alcohol abuse Family history: no significant family history Medications and Allergies Allergies Allergy/AdvReac Type Severity Reaction Status Date / Time No Known Allergies Allergy Verified 07/29/14 21:24 Home Medications Medication Instructions Recorded Confirmed Last Taken Type Alendronate Sodium [Fosamax] 70 mg PO QWEEK 05/15/15 06/06/20 1 Day Ago History ~09/17/15 70 Gabapentin [Neurontin] 300 mg PO Q8HR 05/15/15 06/06/20 1 Day Ago History ~09/17/15 300 Potassium Chloride [K-Dur] 10 meq PO QDAY 05/15/15 06/06/20 1 Day Ago History ~09/17/15 10 Vitamin D 05/15/15 05/15/15 1 Day Ago History ~09/17/15 Nitrofurantoin [place]/M-Cryst 100 mg PO Q12HR #14 capsule 05/16/15 06/06/20 1 Day Ago Rx [Macrobid CAP] ~09/17/15 100 HYDROcodone/APAP 5-325 [[place] 1 each PO Q8HR PRN #12 tablet 09/18/15 06/06/20 Unknown Rx 5/325] Ibuprofen [Motrin 800 MG tab] 800 mg PO Q8HR PRN #20 tablet 04/21/16 06/06/20 Unknown Rx Ondansetron [Zofran ODT TAB] 8 mg PO Q8HR #20 tab.rapdis 04/21/16 06/06/20 Unknown Rx oxyCODONE /ACETAMINOPHEN [Percocet 1 tab PO Q6HR PRN #20 tablet 04/21/16 06/06/20 Unknown Rx 5/325] Gabapentin [Neurontin] 100 mg PO BID 06/06/20 06/06/20 Unknown History Active Meds: Active Medications Acetaminophen (Acetaminophen 325 Mg Tab) 650 mg PO Q6H PRN PRN Reason: Pain, Mild (1-3) Last Admin: 06/05/20 15:22 Dose: 650 mg Documented by: Aspirin (Aspirin Ec 325 Mg Tab) 325 mg PO QDAY COUNTS INCLUDE 234 BEDS AT [facility] Last Admin: 06/06/20 10:27 Dose: 325 mg Documented by: Atorvastatin Calcium (Atorvastatin 40 Mg Tab) 40 mg PO QHS COUNTS INCLUDE 234 BEDS AT THE [facility] Last Admin: 06/05/20 21:43 Dose: 40 mg Documented by: Heparin Sodium (Porcine) (Heparin 5,000 Unit/1 Ml Vial) 5,000 unit SUB-Q Q8HR COUNTS INCLUDE 234 BEDS AT THE [facility] Last Admin: 06/06/20 13:47 Dose: 5,000 unit Documented by: Hydromorphone HCl (Hydromorphone 1 Mg/1 Ml Inj) 0.5 mg IV Q4H PRN PRN Reason: Pain , Severe (7-10) Dextrose/Sodium Chloride (D5/0.45ns) 1,000 mls @ 100 mls/hr IV DIRECT BALJIT Last Admin: 06/06/20 02:02 Dose: 100 mls/hr Documented by: Ceftriaxone Sodium (Rocephin/Ns 1 Gm/50 Ml) 1 gm in 50 mls @ 100 mls/hr IV Q24H COUNTS INCLUDE 234 BEDS AT THE [facility]; Protocol Last Admin: 06/06/20 10:27 Dose: 100 mls/hr Documented by: Ketorolac Tromethamine (Ketorolac 30 Mg/1 Ml Inj) 15 mg IV Q6HR PRN PRN Reason: pain Stop: 06/10/20 11:59 Last Admin: 06/06/20 08:22 Dose: 15 mg Documented by: Nitroglycerin (Nitroglycerin 0.4 Mg Tab Subl) 0.4 mg SL Q5M PRN PRN Reason: Chest Pain Ondansetron HCl (Ondansetron 4 Mg/2 Ml Inj) 4 mg IV Q8H PRN PRN Reason: Nausea And Vomiting Last Admin: 06/06/20 02:03 Dose: 4 mg Documented by: Pantoprazole Sodium (Pantoprazole 40 Mg Tab) 40 mg PO QDAY BALJIT Last Admin: 06/06/20 10:27 Dose: 40 mg Documented by: Senna/Docusate Sodium (Sennosides/Docusate Sodium 8.6/50 Mg Tab) 1 tab PO QHS COUNTS INCLUDE 234 BEDS AT THE [facility] Sodium Chloride (Sodium Chloride 0.9% 10 Ml Flush Syringe) 10 ml IV PRN PRN PRN Reason: LINE FLUSH Last Admin: 06/06/20 10:28 Dose: 10 ml Documented by: I HAVE REVIEWED AND RECONCILED HOME MEDS Review of Systems - Review of Systems All systems: negative (as per the HPI) Exam - Constitutional Vital Signs: Temp Pulse Resp BP Pulse Ox 97.4 F L 69 18 143/60 98 06/06/20 11:55 06/06/20 11:55 06/06/20 11:55 06/06/20 11:55 06/06/20 11:55 General appearance: no acute distress - EENT Eyes: PERRL, EOM intact ENT: hearing intact, clear oral mucosa - Neck Neck: supple, normal ROM - Respiratory Respiratory effort: normal Respiratory: bilateral: CTA - Cardiovascular Rhythm: regular Heart Sounds: Present: S1 & S2 Extremities: no ischemia, No edema - Gastrointestinal General gastrointestinal: Present: soft, non-tender, non-distended - Integumentary Integumentary: Present: clear, warm, dry - Neurologic Neurological: oriented to person, oriented to place, other (Vague about dates/places/times; concern for delerium or dementia) - Labs CBC & Chem 7: 06/05/20 04:17 06/05/20 04:17 Assessment and Plan - Patient Problems (1) Abdominal pain Current Visit: Yes Status: Acute Qualifiers: Abdominal location: generalized Qualified Code(s): R10.84 - Generalized abdominal pain Plan to address problem: - Unclear, based on labs/CTs if this is organic, or due to underlying mental status. - Will continue protonix, and add Senna for constipation; will also had MVI. - CTA of abdomen, to assess patency of SMA/celiac, given pain with eating and weight loss. - HIDA scan if CTA negative. If abnormal will get EGD pre-op to exclude recurrent ulcer.
[2020-06-06] MEDS: ACETAMINOPHEN 325 MG TAB PO PRN (17:32)
[2020-06-06] MEDS: SENNOSIDES/DOCUSATE SODIUM 8.6/50 MG TAB PO SCH (21:52)
[2020-06-07] MEDS: HYDROmorphone 1 MG/1 ML INJ IV PRN ×3 (00:05→08:09)
[2020-06-07] MEDS: HEPARIN 5,000 UNIT/1 ML VIAL SUB-Q SCH ×3 (05:35→21:35)
[2020-06-07 07:47] LABS: Hematocrit 33.2 % (30.3-42.9); Hemoglobin 11.1 gm/dl (10.1-14.3); Mean Corpuscular HGB Conc 33 % (30-34); Mean Corpuscular Volume 100 fl (79-97); Platelet Count 206 K/mm3 (140-440); Red Blood Count 3.33 M/mm3 (3.65-5.03); Red Cell Distribution Width 14.4 % (13.2-15.2)
[2020-06-07] MEDS ORDERED: REGADENOSON 0.4 MG/5 ML INJ IV ONE (08:00)
[2020-06-07 08:09] LABS: Alanine Aminotransferase 14 units/L (7-56); Albumin 3.7 g/dL (3.9-5); Blood Urea Nitrogen 3 mg/dL (7-17); Calcium 8.3 mg/dL (8.4-10.2); Hemolysis Index 3
[2020-06-07 08:10] LABS: BUN/Creatinine Ratio 10
[2020-06-07] MEDS ORDERED: D5W/0.45% NACL 1,000 ML with POTASSIUM CHLORIDE 20 MEQ IV SCH (09:04)
[2020-06-07] MEDS: cefTRIAXone/NS 1 GM/50 ML 1 GM/50 ML BAG IV SCH (09:35)
[2020-06-07] MEDS: ASPIRIN EC 325 MG TAB PO SCH (09:36)
[2020-06-07] MEDS: PANTOPRAZOLE 40 MG TAB PO SCH (09:36)
[2020-06-07] MEDS: D5W/0.45% NACL/KCL 20 MEQ 20 MEQ/1,000 ML BAG IV SCH ×2 (10:37→21:36)
[2020-06-07] MEDS: POTASSIUM CHLORIDE 10 MEQ 10 MEQ/100 ML BAG IV SCH ×4 (10:38→14:49)
[2020-06-07] MEDS: ACETAMINOPHEN 325 MG TAB PO PRN ×2 (10:46→21:35)
--- NOTE | 2020-06-07 11:49 | Gastroenterology Progress Note ---
Assessment and Plan - Patient Problems (1) Abdominal pain Current Visit: Yes Status: Acute Qualifiers: Abdominal location: generalized Qualified Code(s): R10.84 - Generalized abdominal pain Plan to address problem: - Unclear, based on labs/CTs if this is organic, or due to underlying mental s tatus. - Will continue protonix, and add Senna for constipation; will also had MVI. - CTA of abdomen, to assess patency of SMA/celiac, given pain with eating and weight loss. - HIDA scan if CTA negative. If abnormal will get EGD pre-op to exclude recurrent ulcer. - The patient appears to be actively seeking narcotics without obvious need based on exam, labs or CT findings. - Will d/c narcotics and use dicyclomine instead. Subjective Date of service: 06/07/20 Principal diagnosis: Abdominal Pain Interval history: The patient is clinically stable, but she still complains of abdominal pain in the BLQ. She has not had a BM yet with Senna. She has no chest pain today on protonix. Per nursing, she is requesting pain meds around the clock, without obvious distress. When interviewing her today, she could not remember her street address, city, or PCP name. Objective - Constitutional Vitals: Temp Pulse Resp BP Pulse Ox 99.0 F 94 H 16 161/69 99 06/07/20 11:23 06/07/20 11:00 06/07/20 11:00 06/07/20 04:30 06/07/20 11:00 General appearance: no acute distress - EENT ENT: hearing intact, clear oral mucosa - Respiratory Respiratory effort: normal Respiratory: bilateral: CTA - Cardiovascular Rhythm: regular Heart Sounds: Present: S1 & S2 - Gastrointestinal General gastrointestinal: Present: soft, tender (Minimal tenderness without guarding), non-distended - Labs CBC & Chem 7: 06/07/20 06:41 06/07/20 06:41 Labs: Laboratory Results - last 24 hr 06/07/20 06/07/20 06:41 06:41 WBC 6.4 RBC 3.33 L Hgb 11.1 Hct 33.2 MCV 100 H MCH 33 H MCHC 33 RDW 14.4 Plt Count 206 Sodium 140 Potassium 2.9 L* Chloride 104.0 Carbon Dioxide 28 Anion Gap 11 BUN 3 L Creatinine 0.3 L Estimated GFR > 60 BUN/Creatinine Ratio 10 Glucose 102 H Calcium 8.3 L Total Bilirubin 0.60 AST 19 ALT 14 Alkaline Phosphatase 46 Total Protein 6.0 L Albumin 3.7 L Albumin/Globulin Ratio 1.6 Lipase 35
--- NOTE | 2020-06-07 12:04 | Cat Scan Report ---
CTA ABDOMEN AND PELVIS WITH IV CONTRAST INDICATION / CLINICAL INFORMATION: Abdominal pain, atherosclerosis. TECHNIQUE: Axial CT images were obtained through the abdomen and pelvis before and after after injection of 100c c IV contrast. 3 plane MIP / 3D reconstructions were produced. All CT scans at this location are perf ormed using CT dose reduction for ALARA by means of automated exposure control. COMPARISON: None available. FINDINGS: Aorta: No significant abnormality. Renal arteries: No significant abnormality. A small accessory right renal artery is also noted. Celiac artery: No significant abnormality. Superior Mesenteric Artery: No significant abnormality. Inferior mesenteric artery: No significant abnormality. Right Iliac Arteries: No significant abnormality.. Left Iliac Arteries: No significant abnormality.. Additional Findings: A small right femoral hernia is identified containing a short segment of small b owel. No obstruction or inflammation. There appears to be moderate sludge in the gallbladder. No bili adonay dilatation. The remaining abdominal and pelvic viscera are unremarkable. Hysterectomy changes are suspected. Skeletal Structures: No significant abnormality. IMPRESSION: Unremarkable CTA of the abdomen and pelvis. Sludge in the gallbladder. Small right femoral hernia without inflammation or obstruction. Signer Name: Fredy Paiz Jr, MD Signed: 06/07/2020 11:59 AM Workstation Name: [id number]
[2020-06-07] MEDS: KETOROLAC 30 MG/1 ML INJ IV PRN ×2 (12:24→21:35)
[2020-06-07] MEDS: DICYCLOMINE 10 MG CAP PO PRN (15:08)
--- NOTE | 2020-06-07 15:59 | Progress Note ---
Assessment and Plan Assessment and plan: Assessment: 70-year-old female who presents with chest pain and abdominal pain. Chest pain, rule out ACS Troponins negative Aspirin, nitroglycerin. CT of the chest unremarkable Cardiac stress test was canceled by cardiology, patient had a stress test recently which was negative. Information on the chart No additional cardiac work-up is required Intractable abdominal pain Patient with decreased p.o. intake Fluids GI consulted, this patient is known to GIs practice Patient is constantly asking for narcotics, GI has discontinued CT of the abdomen unremarkable GI started dicyclomine Severe protein caloric malnutrition Dietary consult Start patient clear liquid diet to see if she tolerates diet CODE STATUS: Full DVT prophylaxis: Heparin Diet: Clear liquid diet, advance as tolerated Disposition: Work-up so far is unremarkable, attempted to call family but no answer. Left message, will try to call later in the day. History Interval history: Patient complaining of abdominal pain, no nausea or vomiting. Hospitalist Physical - Physical exam Narrative exam: General appearance: Cachectic. no acute distress, well-nourished - EENT Eyes: Present: PERRL, EOM intact ENT: hearing intact, clear oral mucosa - Respiratory Respiratory effort: normal Respiratory: bilateral: CTA, negative: rales, rhonchi, wheezing - Cardiovascular Rhythm: regular Heart Sounds: Present: S1 & S2. Absent: rub, click - Extremities Extremities: no ischemia, No edema, normal temperature, normal color, Full ROM - Abdominal General gastrointestinal: Bowel sounds present, pain around periumbilical area with palpation, abdomen flat - Integumentary Integumentary: Present: clear, warm, dry, normal turgor - Neurologic Neurologic: CNII-XII intact, no focal deficits, moves all extremities - Constitutional Vitals: Temp Pulse Resp BP Pulse Ox 98.4 F 73 14 151/89 100 06/07/20 11:48 06/07/20 11:48 06/07/20 12:54 06/07/20 11:48 06/07/20 11:48 HEART Score - HEART Score EKG: Non-specific Age: > 65 Risk factors: No known risk factors Troponin: Troponin T < 0.010 ng/mL (0.00-0.029) 06/05/20 06:01 Troponin: < normal limit Results - Labs CBC & Chem 7: 06/07/20 06:41 06/07/20 06:41 Labs: Laboratory Last Values WBC 6.4 K/mm3 (4.5-11.0) 06/07/20 06:41 RBC 3.33 M/mm3 (3.65-5.03) L 06/07/20 06:41 Hgb 11.1 gm/dl (10.1-14.3) 06/07/20 06:41 Hct 33.2 % (30.3-42.9) 06/07/20 06:41 MCV 100 fl (79-97) H 06/07/20 06:41 MCH 33 pg (28-32) H 06/07/20 06:41 MCHC 33 % (30-34) 06/07/20 06:41 RDW 14.4 % (13.2-15.2) 06/07/20 06:41 Plt Count 206 K/mm3 (140-440) 06/07/20 06:41 Lymph % (Auto) 14.1 % (13.4-35.0) 06/05/20 04:17 [place] % (Auto) 8.9 % (0.0-7.3) H 06/05/20 04:17 Eos % (Auto) 0.0 % (0.0-4.3) 06/05/20 04:17 Baso % (Auto) 0.3 % (0.0-1.8) 06/05/20 04:17 Lymph # (Auto) 1.0 K/mm3 (1.2-5.4) L 06/05/20 04:17 [place] # (Auto) 0.6 K/mm3 (0.0-0.8) 06/05/20 04:17 Eos # (Auto) 0.0 K/mm3 (0.0-0.4) 06/05/20 04:17 Baso # (Auto) 0.0 K/mm3 (0.0-0.1) 06/05/20 04:17 Seg Neutrophils % 76.7 % (40.0-70.0) H 06/05/20 04:17 Seg Neutrophils # 5.2 K/mm3 (1.8-7.7) 06/05/20 04:17 Sodium 140 mmol/L (137-145) 06/07/20 06:41 Potassium 2.9 mmol/L (3.6-5.0) L* 06/07/20 06:41 Chloride 104.0 mmol/L (98-107) 06/07/20 06:41 Carbon Dioxide 28 mmol/L (22-30) 06/07/20 06:41 Anion Gap 11 mmol/L 06/07/20 06:41 BUN 3 mg/dL (7-17) L 06/07/20 06:41 Creatinine 0.3 mg/dL (0.6-1.2) L 06/07/20 06:41 Estimated GFR > 60 ml/min 06/07/20 06:41 BUN/Creatinine Ratio 10 % 06/07/20 06:41 Glucose 102 mg/dL (65-100) H 06/07/20 06:41 Calcium 8.3 mg/dL (8.4-10.2) L 06/07/20 06:41 Total Bilirubin 0.60 mg/dL (0.1-1.2) 06/07/20 06:41 AST 19 units/L (5-40) 06/07/20 06:41 ALT 14 units/L (7-56) 06/07/20 06:41 Alkaline Phosphatase 46 units/L (35-129) 06/07/20 06:41 Troponin T < 0.010 ng/mL (0.00-0.029) 06/05/20 06:01 Total Protein 6.0 g/dL (6.3-8.2) L 06/07/20 06:41 Albumin 3.7 g/dL (3.9-5) L 06/07/20 06:41 Albumin/Globulin Ratio 1.6 % 06/07/20 06:41 Triglycerides 38 mg/dL (2-149) 06/05/20 04:17 Cholesterol 210 mg/dL (50-199) H 06/05/20 04:17 LDL Cholesterol Direct 152 mg/dL (50-130) H 06/05/20 04:17 HDL Cholesterol 61 mg/dL (40-59) H 06/05/20 04:17 Cholesterol/HDL Ratio 3.44 % 06/05/20 04:17 Lipase 35 units/L (13-60) 06/07/20 06:41 Urine Color Yellow (Yellow) 06/05/20 00:23 Urine Turbidity Slightly-cloudy (Clear) 06/05/20 00:23 Urine pH 7.0 (5.0-7.0) 06/05/20 00:23 Ur Specific [place] 1.012 (1.003-1.030) 06/05/20 00:23 Urine Protein 100 mg/dl mg/dL (Negative) 06/05/20 00:23 Urine Glucose (UA) Neg mg/dL (Negative) 06/05/20 00:23 Urine Ketones Tr mg/dL (Negative) 06/05/20 00:23 Urine Blood Sm (Negative) 06/05/20 00:23 Urine Nitrite Pos (Negative) 06/05/20 00:23 Urine Bilirubin Neg (Negative) 06/05/20 00:23 Urine Urobilinogen < 2.0 mg/dL (<2.0) 06/05/20 00:23 Ur Leukocyte Esterase Tr (Negative) 06/05/20 00:23 Urine WBC (Auto) 7.0 /HPF (0.0-6.0) H 06/05/20 00:23 Urine RBC (Auto) 11.0 /HPF (0.0-6.0) 06/05/20 00:23 U Epithel Cells (Auto) < 1.0 /HPF (0-13.0) 06/05/20 00:23 Urine Bacteria (Auto) 2+ /HPF (Negative) 06/05/20 00:23 Urine Mucus Few /HPF 06/05/20 00:23 Microbiology: Microbiology 06/06/20 Unknown Urine,Clean Catch Urine Culture - Preliminary Cantu/IV: Voiding Method External Female Catheter IV Catheter Type [Right INT / Saline Lock Antecubital] Active Medications - Current Medications Current Medications: Generic Name Dose Route Start Last Admin Trade Name Freq PRN Reason Stop Dose Admin Acetaminophen 650 mg 06/05/20 00:16 06/07/20 10:46 Acetaminophen 325 Mg Tab PO 650 mg Q6H PRN Administration Pain, Mild (1-3) Aspirin 325 mg 06/06/20 10:00 06/07/20 09:36 Aspirin Ec 325 Mg Tab PO 325 mg QDAY BALJIT Administration Atorvastatin Calcium 40 mg 06/05/20 22:00 06/06/20 21:52 Atorvastatin 40 Mg Tab PO 40 mg QHS BALJIT Administration Dicyclomine HCl 10 mg 06/07/20 11:42 06/07/20 15:08 Dicyclomine 10 Mg Cap PO 10 mg TID PRN Administration Pain, Mild (1-3) Heparin Sodium (Porcine) 5,000 unit 06/05/20 06:00 06/07/20 13:37 Heparin 5,000 Unit/1 Ml Vial SUB-Q 5,000 unit Q8HR BALJIT Administration Ceftriaxone Sodium 1 gm in 50 mls @ 100 mls/hr 06/06/20 10:00 06/07/20 09:35 Rocephin/Ns 1 Gm/50 Ml IV 100 mls/hr Q24H BALJIT Administration Protocol Potassium Chloride/Dextrose/Sod Cl 20 meq in 1,000 mls @ 100 mls/hr 06/07/20 10:00 06/07/20 10:37 D5w/0.45% Nacl/Kcl 20 Meq IV 100 mls/hr DIRECT BALJIT Administration Ketorolac Tromethamine 15 mg 06/05/20 09:55 06/07/20 12:24 Ketorolac 30 Mg/1 Ml Inj IV 06/10/20 11:59 15 mg Q6HR PRN Administration pain Nitroglycerin 0.4 mg 06/05/20 00:16 Nitroglycerin 0.4 Mg Tab Subl SL Q5M PRN Chest Pain Ondansetron HCl 4 mg 06/05/20 00:27 06/06/20 02:03 Ondansetron 4 Mg/2 Ml Inj IV 4 mg Q8H PRN Administration Nausea And Vomiting Pantoprazole Sodium 40 mg 06/05/20 10:00 06/07/20 09:36 Pantoprazole 40 Mg Tab PO 40 mg QDAY BALJIT Administration Senna/Docusate Sodium 1 tab 06/06/20 22:00 06/06/20 21:52 Sennosides/Docusate Sodium 8.6/50 Mg Tab PO 1 tab QHS BALJIT Administration Sodium Chloride 10 ml 06/05/20 00:16 06/06/20 10:28 Sodium Chloride 0.9% 10 Ml Flush Syringe IV 10 ml PRN PRN Administration LINE FLUSH Nutrition/Malnutrition Assess - Dietary Evaluation Nutrition/Malnutrition Findings: Nutrition Notes Start: 06/07/20 13:28 Freq: Status: Active Protocol: Document 06/07/20 13:29 HÉCTOR (Rec: 06/07/20 13:36 HÉCTOR [id number]) Nutrition Notes Need for Assessment generated from: Low BMI Initial or Follow up Assessment Other Pertinent Diagnosis Abd pain, PUD, acute constipation Current Diet No diet Labs/Tests K 2.9 Pertinent Medications Kcl 10 mEq D5w/ 1/2 NS/20 mEq Kcl at 100 ml/hr Height 5 ft 1 in Weight 43.6 kg [place] Body Weight (kg) 47.72 BMI 18.1 Weight Status Underweight Subjective/Other Information Screen for low BMI. Per chart, pt reports eating makes her stomach uncomfortable. Per MD, pt without obvious GI issue found on CT. Pt not in room at time of visit. RN states he is wating on MD for diet order . Burn Absent Trauma Absent GI Symptoms Nausea Is patient on ventilator? No Is Patient Ambulatory and/or Out of Bed Yes REE-([place]-St. Jeor-ambulatory/OOB) [ 1148.394 NUTR.[id number]] Kcal/Kg value to use for calculation 30 Approximate Energy Requirements Using 1308 kcal/Kg Calculation Used for Recommendations Kcal/kg Additional Notes Protein: 44-52g (1-1.2g/kg) Fluid: 1 ml/kcal Nutrition Intervention Change Diet Order: Advance as medically able Goal #1 Diet advancement Anticipated Discharge Needs: Regular with ONS PRN Follow-Up By: 06/08/20 Additional Comments FU for diet advancement, assessment and intakes
[2020-06-07] MEDS: SENNOSIDES/DOCUSATE SODIUM 8.6/50 MG TAB PO SCH (21:35)
[2020-06-08] MEDS: KETOROLAC 30 MG/1 ML INJ IV PRN ×2 (07:01→15:00)
[2020-06-08] MEDS: HEPARIN 5,000 UNIT/1 ML VIAL SUB-Q SCH ×3 (07:02→21:59)
[2020-06-08] MEDS: D5W/0.45% NACL/KCL 20 MEQ 20 MEQ/1,000 ML BAG IV SCH ×2 (08:55→21:58)
[2020-06-08] MEDS: cefTRIAXone/NS 1 GM/50 ML 1 GM/50 ML BAG IV SCH (09:05)
[2020-06-08] MEDS: PANTOPRAZOLE 40 MG TAB PO SCH (09:08)
[2020-06-08] MEDS: ASPIRIN EC 325 MG TAB PO SCH (09:09)
[2020-06-08] MEDS: DICYCLOMINE 10 MG CAP PO PRN (09:24)
--- NOTE | 2020-06-08 13:30 | Vascular Lab Report ---
BILATERAL CAROTID DOPPLER ULTRASOUND INDICATION : syncope TECHNIQUE: Grayscale and color Doppler imaging performed through the neck. COMPARISON: None FINDINGS: Right: There is mild partially calcified plaque in the proximal ICA. Peak systolic velocity in the CCA is 97 cm/s with end-diastolic velocity of 22 cm/s. Peak systolic velocity in the proximal ICA is 118 cm/s with end-diastolic velocity of 23 cm/s. ICA to CCA ratio is less than 2. There is antegrade flow in the ECA and the vertebral artery. Left: There is mild to moderate partially calcified and noncalcified plaque in the carotid bulb. Peak systolic velocity in the CCA is 89 cm/s with end-diastolic velocity of 17 cm/s. Peak systolic veloci ty in the proximal ICA is 117 cm/s with end-diastolic velocity of 43 cm/s. ICA to CCA ratio is less t roque 2. There is antegrade flow in the ECA and the vertebral artery. IMPRESSION: No hemodynamically significant stenosis by NASCET criteria. Doppler velocities indicate l ess than 50% luminal narrowing bilaterally. Signer Name: Fredy Paiz Jr, MD Signed: 06/08/2020 1:25 PM Workstation Name: [id number]
[2020-06-08] MEDS ORDERED: LORazepam 0.5 MG TAB PO PRN (15:10)
--- NOTE | 2020-06-08 15:12 | Gastroenterology Progress Note ---
Assessment and Plan - Patient Problems (1) Abdominal pain Current Visit: Yes Status: Acute Qualifiers: Abdominal location: generalized Qualified Code(s): R10.84 - Generalized abdominal pain Plan to address problem: - Unclear, based on labs/CTs if this is organic, or due to underlying mental s tatus. - Will continue protonix, and add Senna for constipation; will also had MVI. - CTA of abdomen was negative. - HIDA scan pending; will also get EGD given recurrent PUD (noted in our clinic), and Goody's use per daughter. - PDMP website searched, and patient has been getting Tramodol 120 tablets monthly for the past year for chronic pain. Agree with gabapentin, and will add small amount of ativan for acute withdrawal, but would avoid all other narcotics at present. Subjective Date of service: 06/08/20 Principal diagnosis: Abdominal Pain Interval history: Since the narcotics were stopped, the patient has become more agitated, and is now complaining of back pain, and side pain. She ate her liquid lunch (and could not get HIDA) without vomiting or blood in stools. Objective - Constitutional Vitals: Temp Pulse Resp BP Pulse Ox 98.1 F 79 16 145/75 97 06/08/20 13:13 06/08/20 13:13 06/08/20 15:00 06/08/20 13:13 06/08/20 13:13 General appearance: mild distress (Agitation, but oriented) - Respiratory Respiratory effort: normal Respiratory: bilateral: CTA - Cardiovascular Rhythm: regular Heart Sounds: Present: S1 & S2 - Gastrointestinal General gastrointestinal: Present: soft, non-tender, non-distended - Neurologic Neurological: alert and oriented x3 - Labs CBC & Chem 7: 06/07/20 06:41 06/07/20 20:01 Labs: Laboratory Results - last 24 hr 06/07/20 20:01 Potassium 3.5 L D
--- NOTE | 2020-06-08 15:31 | Progress Note ---
Assessment and Plan Assessment: 70-year-old female who presents with chest pain and abdominal pain. Chest pain, ruled out ACS Troponins negative Aspirin, nitroglycerin. CT of the chest unremarkable Cardiac stress test was canceled by cardiology, patient had a stress test recently which was negative. Information on the chart No additional cardiac work-up is required Intractable abdominal pain Patient with decreased p.o. intake Fluids GI consulted, this patient is known to GIs practice Patient is constantly asking for narcotics, GI has discontinued CT of the abdomen unremarkable GI started dicyclomine Severe protein caloric malnutrition Dietary consult Start patient clear liquid diet to see if she tolerates diet CODE STATUS: Full DVT prophylaxis: Heparin Diet: Clear liquid diet, advance as tolerated Daily course: 06/05/2020 -CT abdomen and pelvis, CTA chest is unremarkable. Labs are unremarkable. Patient is still complaining severe abdominal pain. I change morphine to Dilaudid, and ketorolac, I ordered KUB and will follow. -We we will follow the stress test. -Patient with hyperlipidemia and on Lipitor Disposition; per clinical course 06/06/2020 -Patient is still complaining severe abdominal pain, labs, and imaging are pending. The cause of severe abdominal pain is unknown, GI consult placed -Chest x-ray of abdomen showed nonspecific gas pattern but no definite obstruction -Continue the above medication for pain control -Pending stress test -Continue Lipitor for hyperlipidemia Disposition; per clinical course 06/07/20: CTA abdomen pelvis ordered per GI recommendation, patient placed on c lear liquid diet. If CT abdomen pelvis negative then need to proceed with HIDA scan. Unable to reach out to patient family 06/08: CT abdomen pelvis obtained yesterday showed no acute abdominal process. Discussed with patient daughter by phone in details. Ordered for HIDA scan but that was canceled as patient ate apples jelly. Discussed with GI, patient will have HIDA scan tomorrow morning and then will be proceed with EGD. Plan of care discussed with patient daughter and with patient. N.p.o. after midnight Subjective Date of service: 06/08/20 Principal diagnosis: Abdominal Pain Objective - Constitutional Vitals: Vital Signs - 12hr 06/08/20 06/08/20 06/08/20 04:48 09:13 10:00 Temperature 98.0 F 97.5 F L Pulse Rate 63 89 81 Pulse Rate [ 77 Apical] Pulse Rate [ 77 From Monitor] Respiratory 18 14 17 Rate Blood Pressure 149/68 Blood Pressure 151/78 [Left] O2 Sat by Pulse 100 98 98 Oximetry 06/08/20 06/08/20 13:13 15:00 Temperature 98.1 F Pulse Rate 79 Pulse Rate [ Apical] Pulse Rate [ From Monitor] Respiratory 16 16 Rate Blood Pressure Blood Pressure 145/75 [Left] O2 Sat by Pulse 97 Oximetry - Labs CBC & Chem 7: 06/09/20 12:17 06/09/20 12:17 Labs: Abnormal lab results 06/07/20 Range/Units 20:01 Potassium 3.5 L D (3.6-5.0) mmol/L HEART Score - HEART Score EKG: Non-specific Age: > 65 Risk factors: No known risk factors Troponin: Troponin T < 0.010 ng/mL (0.00-0.029) 06/05/20 06:01 Troponin: < normal limit
[2020-06-08] MEDS: GABAPENTIN 100 MG CAP PO SCH (21:58)
[2020-06-08] MEDS: SENNOSIDES/DOCUSATE SODIUM 8.6/50 MG TAB PO SCH (21:58)
[2020-06-09] MEDS: HEPARIN 5,000 UNIT/1 ML VIAL SUB-Q SCH ×3 (07:30→22:27)
[2020-06-09] MEDS ORDERED: SINCALIDE 5 MCG VIAL IV ONE (08:37)
[2020-06-09] MEDS ORDERED: SINCALIDE 5 MCG VIAL IV SCH (09:00)
[2020-06-09] MEDS ORDERED: WATER FOR INJ Sterile (PF) 10 ML IV SCH (09:00)
[2020-06-09] MEDS: KETOROLAC 30 MG/1 ML INJ IV PRN ×3 (10:32→22:26)
[2020-06-09] MEDS: ASPIRIN EC 325 MG TAB PO SCH (10:33)
[2020-06-09] MEDS: GABAPENTIN 100 MG CAP PO SCH ×2 (10:33→22:26)
[2020-06-09] MEDS: PANTOPRAZOLE 40 MG TAB PO SCH (10:33)
--- NOTE | 2020-06-09 10:34 | Nuclear Medicine Report ---
NUCLEAR MEDICINE HEPATOBILIARY SCAN INDICATION: abdominal pain. Acute right upper quadrant pain TECHNIQUE: Radiotracer: Tc-99m mebrofenin (by IV): 5 mCi. Gallbladder Stimulant: None. FINDINGS: Hepatic activity: Normal. Biliary activity: Normal. Common bile duct activity at 10 minutes. Gallbladder activity: Normal at 10 minutes. Small bowel activity: Not visualized. IMPRESSION: 1. There was gallbladder uptake of contrast; however, the gallbladder never emptied and there was no activity visualized within the GI tract by the end of the exam (2 hours). Findings could be seen with a common duct stone. Consider follow-up ERCP or MRCP. Signer Name: Anselmo Cantrell MD Signed: 06/09/2020 10:30 AM Workstation Name: [id number]
[2020-06-09] MEDS: cefTRIAXone/NS 1 GM/50 ML 1 GM/50 ML BAG IV SCH (10:35)
[2020-06-09 12:38] LABS: Hematocrit 38.6 % (30.3-42.9); Hemoglobin 12.8 gm/dl (10.1-14.3); Mean Corpuscular HGB Conc 33 % (30-34); Mean Corpuscular Volume 98 fl (79-97); Platelet Count 209 K/mm3 (140-440); Red Blood Count 3.95 M/mm3 (3.65-5.03)
[2020-06-09 12:57] LABS: Blood Urea Nitrogen 3 mg/dL (7-17); Calcium 8.7 mg/dL (8.4-10.2); Hemolysis Index 8
[2020-06-09] MEDS ORDERED: SODIUM CHLORIDE 0.9% 1000 ML 1,000 ML IV SCH (13:00)
[2020-06-09 13:11] LABS: BUN/Creatinine Ratio 10
[2020-06-09] MEDS ORDERED: WATER FOR IRRIG STERILE 1,000 ML BOTTLE ONE (13:26)
[2020-06-09] MEDS ORDERED: WATER FOR IRRIG STERILE 250 ML BOTTLE IR ONE (13:26)
--- NOTE | 2020-06-09 13:36 | Anesthesia Consultation ---
Anesthesia Consult and Med Hx Date of service: 06/09/20 - Airway Anesthetic Teeth Evaluation: Edentulous ROM Head & Neck: Adequate Mental/Hyoid Distance: Adequate Mallampati Class: Class III (small mouth opening) Intubation Access Assessment: Possibly Difficult - Pulmonary Exam CTA: Yes - Cardiac Exam Cardiac Exam: RRR - Pre-Operative Health Status ASA Pre-Surgery Classification: ASA2 Proposed Anesthetic Plan: MAC - Pulmonary Hx Smoking: Yes (former smoker quit 20yrs ago) Hx Respiratory Symptoms: No - Cardiovascular System Hx Hypertension: No Hx Heart Attack/AMI: No (recent normal perfusion scan per cardiology notes) Hx Percutaneous Transluminal Coronary Angioplasty (PTCA): No Hx Cardia Arrhythmia: No - Central Nervous System CVA: No - Endocrine Hx Renal Disease: No Hx Liver Disease: No Hx Insulin Dependent Diabetes: No Hx Non-Insulin Dependent Diabetes: No Hx Thyroid Disease: No - Other Systems Hx Obesity: No - Additional Comments Anesthesia Medical History Comments: Abdominal pain and constipation scheduled for EGD.
[2020-06-09] MEDS ORDERED: propofoL 200 MG/20 ML VIAL IV ONE (13:59)
[2020-06-09] MEDS ORDERED: LIDOCAINE MPF (2%) 20 MG/1 ML VIAL 5 ML ONE (14:17)
--- NOTE | 2020-06-09 14:27 | Post Operative Note ---
Pre-op diagnosis: N/V Post-op diagnosis: other (GOO) Findings: 1. 1cm ulcer at pre-pylorus - Cold bx of margin 2. Pyloric stenosis with mild retained food in fundus of stomach - Scope would not pass pre-dilation - 13.5mm balloon dilation - Scope advanced to 2nd portion easily after dilation 3. Normal duodenum 4. Normal proximal stomach/esophagus Procedure: EGD with pyloric dilation and cold biopsy Anesthesia: MAC Surgeon: WILBUR ESPARZA Estimated blood loss: minimal Pathology: list (1. Antrum ulcer) Specimen disposition: to lab Condition: stable Disposition: floor (Recs: 1. Full liquid diet, advance as tolerated. 2. Protonix QD. 3. Patient should avoid all NSAIDs (takes copious Goodys at home). 4. MRCP given abnormal HIDA (though LFTs are normal; doubt obstruction).)
[2020-06-09] MEDS: ONDANSETRON 4 MG/2 ML INJ IV PRN (14:37)
--- NOTE | 2020-06-09 14:39 | Operative Report ---
PROCEDURES PERFORMED: Esophagogastroduodenoscopy with pyloric balloon dilation and cold biopsy. PREOPERATIVE DIAGNOSES: Nausea and vomiting as well as epigastric pain and history of peptic ulcer disease. POSTOPERATIVE DIAGNOSES: Prepyloric ulcer with gastric outlet obstruction. ENDOSCOPIST: Dr. Kevin Olvera. INSTRUMENT: Olympus video endoscope. MEDICATIONS: MAC anesthesia by [facility]hesia [facility]. COMPLICATIONS: No apparent complications. ESTIMATED BLOOD LOSS: Minimal. SPECIMENS: Antrum ulcer. IMPLANTS: None. ASSISTANTS: None. CONDITION AT COMPLETION: Stable. TECHNIQUE: The patient was informed of the risks and benefits of the procedure. She signed the informed consent to proceed. She was placed in the left lateral decubitus position. The above sedative medications were given. Her vital signs remained stable throughout the procedure. The instrument was advanced from the mouth to the pylorus under direct visualization. At that point, benign smooth stenosis was encountered, likely from prior peptic ulcer disease. We performed a 13.5 mm dilation of the pylorus, since the distal lumen could be easily visualized, and the endoscope was then advanced to the second portion of the duodenum, and the procedure was completed. FINDINGS: 1. 1 cm ulcer, cratered, but no visible vessel, in the prepylorus region. A. Cold biopsies were taken of the margin. 2. Pyloric stenosis with mild retained food in the fundus of the stomach consistent with partial gastric outlet obstruction. A. The endoscope would not pass prior to dilation. B. 13.5 mm balloon was used to dilate the stenosis. C. The endoscope was easily advanced to the second portion of the duodenum after dilation. 3. Normal duodenum. 4. Normal proximal stomach and esophagus. RECOMMENDATIONS: 1. Full liquid diet and advance as tolerated. 2. Protonix daily therapy. 3. The patient should avoid all nonsteroidal anti-inflammatory drugs; she takes copious Goody powders at home. 4. MRCP given her recent abnormal HIDA scan, although with normal liver enzymes, I doubt obstruction or acalculous cholecystitis. JOB# [id number] AGUILA/NTS
--- NOTE | 2020-06-09 15:25 | Progress Note ---
<LYNETTE BOONE - Last Filed: 06/09/20 15:48> Assessment and Plan Assessment and plan: Chest pain -Ruled out ACS Troponins negative Aspirin, nitroglycerin. 06/04 CTA chest shows no evidence of acute PTE, mild coronary artery calcification, mild scarring of bilateral lung apices minimal subsegmental atelectasis in bilateral lower lobes. Cardiac stress test was canceled by cardiology, patient had a stress test rece ntly which was negative. Information on the chart No additional cardiac work-up is required Intractable abdominal pain Patient with decreased p.o. 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 -06/05 KUB shows nonspecific bowel pattern with no evidence of obstruction -06/07 CTA abdomen/pelvis shows small accessory right renal artery, small right femoral hernia containing a short segment of small bowel without obstruction of admission, moderate sludge in the gallbladder, hysterectomy -06/09 HIDA scan shows gallbladder uptake of the contrast however gallbladder never emptied and there was no activity visualized within the GI tract which is suggestive of common duct stone do not consider ERCP or MRCP -CLD, advance as tolerated -06/09 EGD shows 1 cm ulcer at the prepylorus biopsy of margin, pyloric stenosis with mild retained food in the fundus of stomach s/p 13.5 mm balloon dilation, normal duodenum and normal proximal stomach/proximal esophagus -Protonix daily -Avoid all NSAIDs -06/09 MRCP pending Severe protein caloric malnutrition Dietary consult Start patient clear liquid diet to see if she tolerates diet Leukopenia -Patient presented with a WBC of 7.3 -04/08 WBC 4.6 -Trend CBC -Monitor for signs and symptoms of infection -Initiate treatment precautions when appropriate Hyperlipidemia -06/05 lipid panel triglyceride 38, cholesterol 210, LDL 152, HDL 61 -Statin therapy Hypernatremic -Patient presented with a sodium of 145 -06/09 sodium 134 -Trend BMP DVT prophylaxis -Subcu heparin -SCDs to bilateral ultrasound in bed -GI prophylaxis with Protonix Hypokalemic, resolved -06/05 potassium 3.3, 06/07 potassium 2.9 at 0641, 06/07 potassium 3.5 -2 potassium 3.7 -Trend BMP -Repeat as needed -S/p patient with IV and MIVF with IV History Interval history: This is a 70-year-old female with nephrolithiasis, chronic pain, peptic ulcer and neuropathy who presented to the emergency department on 06/05 with complaints of chest pain, shortness of breath, abdominal pain, constipation, and nausea. Her chest pain is rated at 10/10 located in the left chest and midsternal which is associated with shortness of breath for about a week. Abdominal pain general ized added 10/10 and states that she has not had a bowel movement for 1 week with worsening nausea. Work-up in the emergency department included cardiac enzymes which were negative and a CT abdomen/pelvis which showed no acute intra- abdominal abnormality. Patient was admitted to the hospitalist service for further work-up with consults to GI. Patient was scheduled for a stress test however it was canceled due to recent negative cardiac work-up. 06/05/2020 -CT abdomen and pelvis, CTA chest is unremarkable. Labs are unremarkable. Patient is still complaining severe abdominal pain. I change morphine to Dilaudid, and ketorolac, I ordered KUB and will follow. -We we will follow the stress test. -Patient with hyperlipidemia and on Lipitor Disposition; per clinical course 06/06/2020 -Patient is still complaining severe abdominal pain, labs, and imaging are pending. The cause of severe abdominal pain is unknown, GI consult placed -Chest x-ray of abdomen showed nonspecific gas pattern but no definite obstruction -Continue the above medication for pain control -Pending stress test -Continue Lipitor for hyperlipidemia Disposition; per clinical course 06/07/20: CTA abdomen pelvis ordered per GI recommendation, patient placed on clear liquid diet. If CT abdomen pelvis negative then need to proceed with HIDA scan. Unable to reach out to patient family 06/08: CT abdomen pelvis obtained yesterday showed no acute abdominal process. Discussed with patient daughter by phone in details. Ordered for HIDA scan but that was canceled as patient ate apples daily. Discussed with GI patient will have HIDA scan tomorrow morning and then will be proceed with EGD. Plan of care discussed with patient daughter and with patient. N.p.o. after midnight 2/3: s/p HIDA scan, EGD and MRCP pending. Patient still complains of abdominal back pain. No acute events reported overnight Hospitalist Physical - Constitutional Vitals: Temp Pulse Resp BP Pulse Ox 98.6 F 81 16 153/87 99 06/09/20 14:21 06/09/20 14:50 06/09/20 14:50 06/09/20 14:50 06/09/20 14:50 General appearance: Present: no acute distress, well-nourished - EENT Eyes: Present: PERRL, EOM intact ENT: hearing decreased, poor dentition - Neck Neck: Present: normal ROM - Respiratory Respiratory effort: normal Respiratory: bilateral: CTA - Cardiovascular Rhythm: regular Heart Sounds: Present: S1 & S2. Absent: systolic murmur, diastolic murmur - Extremities Extremities: no ischemia, pulses intact, pulses symmetrical, No edema, normal temperature, normal color, Full ROM Peripheral Pulses: within normal limits - Abdominal General gastrointestinal: soft, non-tender, non-distended, normal bowel sounds - Integumentary Integumentary: Present: clear, warm, dry - Psychiatric Psychiatric: appropriate mood/affect, cooperative - Neurologic Neurologic: CNII-XII intact, no focal deficits, moves all extremities - Allied Health Allied health notes reviewed: nursing HEART Score - HEART Score EKG: Non-specific Age: > 65 Risk factors: No known risk factors Troponin: Troponin T < 0.010 ng/mL (0.00-0.029) 06/05/20 06:01 Troponin: < normal limit Results - Labs CBC & Chem 7: 06/09/20 12:17 06/09/20 12:17 Labs: Laboratory Last Values WBC 4.1 K/mm3 (4.5-11.0) L 06/09/20 12:17 RBC 3.95 M/mm3 (3.65-5.03) 06/09/20 12:17 Hgb 12.8 gm/dl (10.1-14.3) 06/09/20 12:17 Hct 38.6 % (30.3-42.9) 06/09/20 12:17 MCV 98 fl (79-97) H 06/09/20 12:17 MCH 32 pg (28-32) 06/09/20 12:17 MCHC 33 % (30-34) 06/09/20 12:17 RDW 14.0 % (13.2-15.2) 06/09/20 12:17 Plt Count 209 K/mm3 (140-440) 06/09/20 12:17 Lymph % (Auto) 14.1 % (13.4-35.0) 06/05/20 04:17 [place] % (Auto) 8.9 % (0.0-7.3) H 06/05/20 04:17 Eos % (Auto) 0.0 % (0.0-4.3) 06/05/20 04:17 Baso % (Auto) 0.3 % (0.0-1.8) 06/05/20 04:17 Lymph # (Auto) 1.0 K/mm3 (1.2-5.4) L 06/05/20 04:17 [place] # (Auto) 0.6 K/mm3 (0.0-0.8) 06/05/20 04:17 Eos # (Auto) 0.0 K/mm3 (0.0-0.4) 06/05/20 04:17 Baso # (Auto) 0.0 K/mm3 (0.0-0.1) 06/05/20 04:17 Seg Neutrophils % 76.7 % (40.0-70.0) H 06/05/20 04:17 Seg Neutrophils # 5.2 K/mm3 (1.8-7.7) 06/05/20 04:17 Sodium 134 mmol/L (137-145) L 06/09/20 12:17 Potassium 3.7 mmol/L (3.6-5.0) 06/09/20 12:17 Chloride 101.5 mmol/L (98-107) 06/09/20 12:17 Carbon Dioxide 24 mmol/L (22-30) 06/09/20 12:17 Anion Gap 12 mmol/L 06/09/20 12:17 BUN 3 mg/dL (7-17) L 06/09/20 12:17 Creatinine 0.3 mg/dL (0.6-1.2) L 06/09/20 12:17 Estimated GFR > 60 ml/min 06/09/20 12:17 BUN/Creatinine Ratio 10 % 06/09/20 12:17 Glucose 101 mg/dL (65-100) H 06/09/20 12:17 Calcium 8.7 mg/dL (8.4-10.2) 06/09/20 12:17 Total Bilirubin 0.60 mg/dL (0.1-1.2) 06/07/20 06:41 AST 19 units/L (5-40) 06/07/20 06:41 ALT 14 units/L (7-56) 06/07/20 06:41 Alkaline Phosphatase 46 units/L (35-129) 06/07/20 06:41 Troponin T < 0.010 ng/mL (0.00-0.029) 06/05/20 06:01 Total Protein 6.0 g/dL (6.3-8.2) L 06/07/20 06:41 Albumin 3.7 g/dL (3.9-5) L 06/07/20 06:41 Albumin/Globulin Ratio 1.6 % 06/07/20 06:41 Triglycerides 38 mg/dL (2-149) 06/05/20 04:17 Cholesterol 210 mg/dL (50-199) H 06/05/20 04:17 LDL Cholesterol Direct 152 mg/dL (50-130) H 06/05/20 04:17 HDL Cholesterol 61 mg/dL (40-59) H 06/05/20 04:17 Cholesterol/HDL Ratio 3.44 % 06/05/20 04:17 Lipase 35 units/L (13-60) 06/07/20 06:41 Urine Color Yellow (Yellow) 06/05/20 00:23 Urine Turbidity Slightly-cloudy (Clear) 06/05/20 00:23 Urine pH 7.0 (5.0-7.0) 06/05/20 00:23 Ur Specific [place] 1.012 (1.003-1.030) 06/05/20 00:23 Urine Protein 100 mg/dl mg/dL (Negative) 06/05/20 00:23 Urine Glucose (UA) Neg mg/dL (Negative) 06/05/20 00:23 Urine Ketones Tr mg/dL (Negative) 06/05/20 00:23 Urine Blood Sm (Negative) 06/05/20 00:23 Urine Nitrite Pos (Negative) 06/05/20 00:23 Urine Bilirubin Neg (Negative) 06/05/20 00:23 Urine Urobilinogen < 2.0 mg/dL (<2.0) 06/05/20 00:23 Ur Leukocyte Esterase Tr (Negative) 06/05/20 00:23 Urine WBC (Auto) 7.0 /HPF (0.0-6.0) H 06/05/20 00:23 Urine RBC (Auto) 11.0 /HPF (0.0-6.0) 06/05/20 00:23 U Epithel Cells (Auto) < 1.0 /HPF (0-13.0) 06/05/20 00:23 Urine Bacteria (Auto) 2+ /HPF (Negative) 06/05/20 00:23 Urine Mucus Few /HPF 06/05/20 00:23 Cantu/IV: Voiding Method External Female Catheter IV Catheter Type [Right INT / Saline Lock Antecubital] Active Medications - Current Medications Current Medications: Generic Name Dose Route Start Last Admin Trade Name Freq PRN Reason Stop Dose Admin Acetaminophen 650 mg 06/05/20 00:16 06/07/20 21:35 Acetaminophen 325 Mg Tab PO 650 mg Q6H PRN Administration Pain, Mild (1-3) Alendronate Sodium 70 mg 06/15/20 10:00 Alendronate Sodium 70 Mg Tab PO Tu BALJIT Atorvastatin Calcium 40 mg 06/05/20 22:00 06/08/20 21:58 Atorvastatin 40 Mg Tab PO 40 mg QHS BALJIT Administration Gabapentin 100 mg 06/08/20 22:00 06/09/20 10:33 Gabapentin 100 Mg Cap PO 100 mg BID BALJIT Administration Heparin Sodium (Porcine) 5,000 unit 06/05/20 06:00 06/09/20 14:08 Heparin 5,000 Unit/1 Ml Vial SUB-Q Not Given Q8HR BALJIT Ceftriaxone Sodium 1 gm in 50 mls @ 100 mls/hr 06/06/20 10:00 06/09/20 10:35 Rocephin/Ns 1 Gm/50 Ml IV 06/12/20 10:29 100 mls/hr Q24H BALJIT Administration Protocol Potassium Chloride/Dextrose/Sod Cl 20 meq in 1,000 mls @ 100 mls/hr 06/07/20 10:00 06/08/20 21:58 D5w/0.45% Nacl/Kcl 20 Meq IV 100 mls/hr DIRECT BALJIT Administration Sodium Chloride 1,000 mls @ 50 mls/hr 06/09/20 13:00 Nacl 0.9% 1000 Ml IV DIRECT BALJIT Ketorolac Tromethamine 15 mg 06/05/20 09:55 06/09/20 10:32 Ketorolac 30 Mg/1 Ml Inj IV 06/10/20 11:59 15 mg Q6HR PRN Administration pain Lorazepam 0.5 mg 06/08/20 15:10 06/08/20 21:58 Lorazepam 0.5 Mg Tab PO 0.5 mg Q8H PRN Administration Agitation Multivitamins/Minerals 1 each 06/10/20 10:00 Multivitamins,Ther W-Minerals Tab PO QDAY BALJIT Nitroglycerin 0.4 mg 06/05/20 00:16 Nitroglycerin 0.4 Mg Tab Subl SL Q5M PRN Chest Pain Ondansetron HCl 4 mg 06/05/20 00:27 06/09/20 14:37 Ondansetron 4 Mg/2 Ml Inj IV 4 mg Q8H PRN Administration Nausea And Vomiting Pantoprazole Sodium 40 mg 06/05/20 10:00 06/09/20 10:33 Pantoprazole 40 Mg Tab PO 40 mg QDAY BALJIT Administration Senna/Docusate Sodium 1 tab 06/06/20 22:00 06/08/20 21:58 Sennosides/Docusate Sodium 8.6/50 Mg Tab PO 1 tab QHS BALJIT Administration Sodium Chloride 10 ml 06/05/20 00:16 06/06/20 10:28 Sodium Chloride 0.9% 10 Ml Flush Syringe IV 10 ml PRN PRN Administration LINE FLUSH Nutrition/Malnutrition Assess - Dietary Evaluation Nutrition/Malnutrition Findings: Nutrition Notes Start: 06/07/20 13:28 Freq: Status: Active Protocol: Document 06/08/20 14:18 EN (Rec: 06/08/20 14:28 EN [email or web address]) Co-Sign 06/08/20 14:18 MK Nutrition Notes Initial or Follow up Reassessment Other Pertinent Diagnosis Abd pain, PUD, acute constipation Current Diet Cl Liq Labs/Tests Reviewed Pertinent Medications D5w/ 1/2 NS/20 mEq Kcl at 100 ml/hr Height 5 ft 1 in Weight 45.5 kg Usual Body Weight 72 kg [place] Body Weight (kg) 47.72 BMI 18.9 Weight change and time frame 36% wt loss in 1 year Weight Status Underweight Subjective/Other Information F/u for assessment, diet advancement and intakes. Pt reports UBW 160lbs 1 year ago. Pt states that eating makes her stomach uncomfortable. Pt states that she has been able to tolerate the cl liq diet so far. Pt consumed 25% of breakfast and is open to trying Ensure Clear. Pt reports small amount of vomiting yesterday. Percent of energy/protein needs met: 10%/7% Burn Absent Trauma Absent GI Symptoms Vomiting Food Allergy No Current % PO Poor (25-49%) Minimum of two criteria Yes Interpretation of Weight Loss (severe) > 20% in 1 year Body Fat Depletion Moderate depletion (severe) #1 Nutrition Diagnosis Malnutrition Etiology PUD and Hx of NSAID abuse As Evidenced by Signs and Symptoms Pt with 36% wt loss in 1 year and severe fat wasting Is patient on ventilator? No Is Patient Ambulatory and/or Out of Bed Yes [facility] [ 1173.094 NUTR.MSJOOB] Kcal/Kg value to use for calculation 32 Approximate Energy Requirements Using 1456 kcal/Kg Calculation Used for Recommendations Kcal/kg Additional Notes Protein: 1.2-1.5g/kg (55-69g) Fluid: 1ml/kcal or per MD Nutrition Intervention Change Diet Order: Advance diet when medically feasible Add Supplement/Snack (indicate name/kcal Ensure Clear TID /protein ) Provides kCal: 720 Provides Protein (gm) 24 Goal #1 Diet advancement Goal #2 Meet at least 75% of energy and protein needs via PO Anticipated Discharge Needs: Regular with ONS PRN Follow-Up By: 06/10/20 Additional Comments FU for diet advancement, ONS tolerance and intakes <SCOTT MEJIA R - Last Filed: 06/09/20 16:56> Assessment and Plan Assessment and plan: I saw and evaluated the patient. I agree with the findings and the plan of care as documented in the Nurse Practitioner's~note, Hospitalist Physical - Constitutional Vitals: Temp Pulse Resp BP Pulse Ox 98.6 F 81 16 153/87 99 06/09/20 14:21 06/09/20 14:50 06/09/20 14:50 06/09/20 14:50 06/09/20 14:50 HEART Score - HEART Score Troponin: Troponin T < 0.010 ng/mL (0.00-0.029) 06/05/20 06:01 Results - Labs CBC & Chem 7: 06/09/20 12:17 06/09/20 12:17 Labs: Laboratory Last Values WBC 4.1 K/mm3 (4.5-11.0) L 06/09/20 12:17 RBC 3.95 M/mm3 (3.65-5.03) 06/09/20 12:17 Hgb 12.8 gm/dl (10.1-14.3) 06/09/20 12:17 Hct 38.6 % (30.3-42.9) 06/09/20 12:17 MCV 98 fl (79-97) H 06/09/20 12:17 MCH 32 pg (28-32) 06/09/20 12:17 MCHC 33 % (30-34) 06/09/20 12:17 RDW 14.0 % (13.2-15.2) 06/09/20 12:17 Plt Count 209 K/mm3 (140-440) 06/09/20 12:17 Lymph % (Auto) 14.1 % (13.4-35.0) 06/05/20 04:17 Garrett % (Auto) 8.9 % (0.0-7.3) H 06/05/20 04:17 Eos % (Auto) 0.0 % (0.0-4.3) 06/05/20 04:17 Baso % (Auto) 0.3 % (0.0-1.8) 06/05/20 04:17 Lymph # (Auto) 1.0 K/mm3 (1.2-5.4) L 06/05/20 04:17 [place] # (Auto) 0.6 K/mm3 (0.0-0.8) 06/05/20 04:17 Eos # (Auto) 0.0 K/mm3 (0.0-0.4) 06/05/20 04:17 Baso # (Auto) 0.0 K/mm3 (0.0-0.1) 06/05/20 04:17 Seg Neutrophils % 76.7 % (40.0-70.0) H 06/05/20 04:17 Seg Neutrophils # 5.2 K/mm3 (1.8-7.7) 06/05/20 04:17 Sodium 134 mmol/L (137-145) L 06/09/20 12:17 Potassium 3.7 mmol/L (3.6-5.0) 06/09/20 12:17 Chloride 101.5 mmol/L (98-107) 06/09/20 12:17 Carbon Dioxide 24 mmol/L (22-30) 06/09/20 12:17 Anion Gap 12 mmol/L 06/09/20 12:17 BUN 3 mg/dL (7-17) L 06/09/20 12:17 Creatinine 0.3 mg/dL (0.6-1.2) L 06/09/20 12:17 Estimated GFR > 60 ml/min 06/09/20 12:17 BUN/Creatinine Ratio 10 % 06/09/20 12:17 Glucose 101 mg/dL (65-100) H 06/09/20 12:17 Calcium 8.7 mg/dL (8.4-10.2) 06/09/20 12:17 Total Bilirubin 0.60 mg/dL (0.1-1.2) 06/07/20 06:41 AST 19 units/L (5-40) 06/07/20 06:41 ALT 14 units/L (7-56) 06/07/20 06:41 Alkaline Phosphatase 46 units/L (35-129) 06/07/20 06:41 Troponin T < 0.010 ng/mL (0.00-0.029) 06/05/20 06:01 Total Protein 6.0 g/dL (6.3-8.2) L 06/07/20 06:41 Albumin 3.7 g/dL (3.9-5) L 06/07/20 06:41 Albumin/Globulin Ratio 1.6 % 06/07/20 06:41 Triglycerides 38 mg/dL (2-149) 06/05/20 04:17 Cholesterol 210 mg/dL (50-199) H 06/05/20 04:17 LDL Cholesterol Direct 152 mg/dL (50-130) H 06/05/20 04:17 HDL Cholesterol 61 mg/dL (40-59) H 06/05/20 04:17 Cholesterol/HDL Ratio 3.44 % 06/05/20 04:17 Lipase 35 units/L (13-60) 06/07/20 06:41 Urine Color Yellow (Yellow) 06/05/20 00:23 Urine Turbidity Slightly-cloudy (Clear) 06/05/20 00:23 Urine pH 7.0 (5.0-7.0) 06/05/20 00:23 Ur Specific [place] 1.012 (1.003-1.030) 06/05/20 00:23 Urine Protein 100 mg/dl mg/dL (Negative) 06/05/20 00:23 Urine Glucose (UA) Neg mg/dL (Negative) 06/05/20 00:23 Urine Ketones Tr mg/dL (Negative) 06/05/20 00:23 Urine Blood Sm (Negative) 06/05/20 00:23 Urine Nitrite Pos (Negative) 06/05/20 00:23 Urine Bilirubin Neg (Negative) 06/05/20 00:23 Urine Urobilinogen < 2.0 mg/dL (<2.0) 06/05/20 00:23 Ur Leukocyte Esterase Tr (Negative) 06/05/20 00:23 Urine WBC (Auto) 7.0 /HPF (0.0-6.0) H 06/05/20 00:23 Urine RBC (Auto) 11.0 /HPF (0.0-6.0) 06/05/20 00:23 U Epithel Cells (Auto) < 1.0 /HPF (0-13.0) 06/05/20 00:23 Urine Bacteria (Auto) 2+ /HPF (Negative) 06/05/20 00:23 Urine Mucus Few /HPF 06/05/20 00:23 Cantu/IV: Voiding Method External Female Catheter IV Catheter Type [Right INT / Saline Lock Antecubital] Active Medications - Current Medications Current Medications: Generic Name Dose Route Start Last Admin Trade Name Freq PRN Reason Stop Dose Admin Acetaminophen 650 mg 06/05/20 00:16 06/07/20 21:35 Acetaminophen 325 Mg Tab PO 650 mg Q6H PRN Administration Pain, Mild (1-3) Alendronate Sodium 70 mg 06/15/20 10:00 Alendronate Sodium 70 Mg Tab PO Tu [facility] Atorvastatin Calcium 40 mg 06/05/20 22:00 06/08/20 21:58 Atorvastatin 40 Mg Tab PO 40 mg QHS BALJIT Administration Gabapentin 100 mg 06/08/20 22:00 06/09/20 10:33 Gabapentin 100 Mg Cap PO 100 mg BID BALJIT Administration Heparin Sodium (Porcine) 5,000 unit 06/05/20 06:00 06/09/20 14:08 Heparin 5,000 Unit/1 Ml Vial SUB-Q Not Given Q8HR BALJIT Ceftriaxone Sodium 1 gm in 50 mls @ 100 mls/hr 06/06/20 10:00 06/09/20 10:35 Rocephin/Ns 1 Gm/50 Ml IV 06/12/20 10:29 100 mls/hr Q24H BALJIT Administration Protocol Potassium Chloride/Dextrose/Sod Cl 20 meq in 1,000 mls @ 100 mls/hr 06/07/20 10:00 06/08/20 21:58 D5w/0.45% Nacl/Kcl 20 Meq IV 100 mls/hr DIRECT BALJIT Administration Sodium Chloride 1,000 mls @ 50 mls/hr 06/09/20 13:00 Nacl 0.9% 1000 Ml IV DIRECT BALJIT Ketorolac Tromethamine 15 mg 06/05/20 09:55 06/09/20 10:32 Ketorolac 30 Mg/1 Ml Inj IV 06/10/20 11:59 15 mg Q6HR PRN Administration pain Lorazepam 0.5 mg 06/08/20 15:10 06/08/20 21:58 Lorazepam 0.5 Mg Tab PO 0.5 mg Q8H PRN Administration Agitation Multivitamins/Minerals 1 each 06/10/20 10:00 Multivitamins,Ther W-Minerals Tab PO QDAY BALJIT Nitroglycerin 0.4 mg 06/05/20 00:16 Nitroglycerin 0.4 Mg Tab Subl SL Q5M PRN Chest Pain Ondansetron HCl 4 mg 06/05/20 00:27 06/09/20 14:37 Ondansetron 4 Mg/2 Ml Inj IV 4 mg Q8H PRN Administration Nausea And Vomiting Pantoprazole Sodium 40 mg 06/05/20 10:00 06/09/20 10:33 Pantoprazole 40 Mg Tab PO 40 mg QDAY BALJIT Administration Senna/Docusate Sodium 1 tab 06/06/20 22:00 06/08/20 21:58 Sennosides/Docusate Sodium 8.6/50 Mg Tab PO 1 tab QHS BALJIT Administration Sodium Chloride 10 ml 06/05/20 00:16 06/06/20 10:28 Sodium Chloride 0.9% 10 Ml Flush Syringe IV 10 ml PRN PRN Administration LINE FLUSH Nutrition/Malnutrition Assess - Dietary Evaluation Nutrition/Malnutrition Findings: Nutrition Notes Start: 06/07/20 13:28 Freq: Status: Active Protocol: Document 06/08/20 14:18 EN (Rec: 06/08/20 14:28 EN [email or web address]) Co-Sign 06/08/20 14:18 MK Nutrition Notes Initial or Follow up Reassessment Other Pertinent Diagnosis Abd pain, PUD, acute constipation Current Diet Cl Liq Labs/Tests Reviewed Pertinent Medications D5w/ 1/2 NS/20 mEq Kcl at 100 ml/hr Height 5 ft 1 in Weight 45.5 kg Usual Body Weight 72 kg [place] Body Weight (kg) 47.72 BMI 18.9 Weight change and time frame 36% wt loss in 1 year Weight Status Underweight Subjective/Other Information F/u for assessment, diet advancement and intakes. Pt reports UBW 160lbs 1 year ago. Pt states that eating makes her stomach uncomfortable. Pt states that she has been able to tolerate the cl liq diet so far. Pt consumed 25% of breakfast and is open to trying Ensure Clear. Pt reports small amount of vomiting yesterday. Percent of energy/protein needs met: 10%/7% Burn Absent Trauma Absent GI Symptoms Vomiting Food Allergy No Current % PO Poor (25-49%) Minimum of two criteria Yes Interpretation of Weight Loss (severe) > 20% in 1 year Body Fat Depletion Moderate depletion (severe) #1 Nutrition Diagnosis Malnutrition Etiology PUD and Hx of NSAID abuse As Evidenced by Signs and Symptoms Pt with 36% wt loss in 1 year and severe fat wasting Is patient on ventilator? No Is Patient Ambulatory and/or Out of Bed Yes REE-([place]-ambulatory/OOB) [ 1173.094 NUTR.MSJOOB] Kcal/Kg value to use for calculation 32 Approximate Energy Requirements Using 1456 kcal/Kg Calculation Used for Recommendations Kcal/kg Additional Notes Protein: 1.2-1.5g/kg (55-69g) Fluid: 1ml/kcal or per MD Nutrition Intervention Change Diet Order: Advance diet when medically feasible Add Supplement/Snack (indicate name/kcal Ensure Clear TID /protein ) Provides kCal: 720 Provides Protein (gm) 24 Goal #1 Diet advancement Goal #2 Meet at least 75% of energy and protein needs via PO Anticipated Discharge Needs: Regular with ONS PRN Follow-Up By: 06/10/20 Additional Comments FU for diet advancement, ONS tolerance and intakes
--- NOTE | 2020-06-09 15:28 | Post Anesthesia Evaluation ---
- Post Anesthesia Evaluation Patient Participated: Yes Airway Patent: Yes Stable Respiratory Function: Yes Nausea/Vomiting: No Temp > 96.8F: Yes Pain Manageable: Yes Adequeate Hydration: Yes Anesthesia Complications: No
--- NOTE | 2020-06-09 15:28 | Anesthesia Day of Surgery ---
Anesthesia Day of Surgery - Day of Surgery Patient Examined: Yes Patient H&P Reviewed: Yes Patient is NPO: Yes
[2020-06-09] MEDS: D5W/0.45% NACL/KCL 20 MEQ 20 MEQ/1,000 ML BAG IV SCH (17:27)
[2020-06-09] MEDS: SENNOSIDES/DOCUSATE SODIUM 8.6/50 MG TAB PO SCH (22:26)
[2020-06-10] MEDS: HEPARIN 5,000 UNIT/1 ML VIAL SUB-Q SCH ×2 (05:16→14:45)
[2020-06-10] MEDS: D5W/0.45% NACL/KCL 20 MEQ 20 MEQ/1,000 ML BAG IV SCH (05:23)
[2020-06-10] MEDS ORDERED: MULTIVITAMINS,THER W-MINERALS TAB PO SCH (10:00)
--- NOTE | 2020-06-10 10:28 | Magnetic Resonance Report ---
MR abdomen MRCP HISTORY: Abdominal pain, possible common bile duct stone TECHNIQUE: Multisequence, multiplanar MRI. COMPARISON: HIDA scan 06/09/2020. CT abdomen pelvis 06/04/2020. FINDINGS: The MRCP images demonstrate a mild degree of sludge in the gallbladder. No gallstones are appreciated . The pancreaticobiliary tree is within normal limits. There is no abnormal dilatation or common duct stone. Signal characteristics of the liver, pancreas, spleen, kidneys, adrenal glands and visualized bowel l oops are unremarkable. No evidence for mass, adenopathy, ascites or inflammatory changes. IMPRESSION: Mild degree of sludge in the gallbladder. No evidence for choledocholithiasis or biliary dilatation. Signer Name: Fredy Paiz Jr, MD Signed: 06/10/2020 10:23 AM Workstation Name: [id number]
[2020-06-10] MEDS: cefTRIAXone/NS 1 GM/50 ML 1 GM/50 ML BAG IV SCH (10:37)
[2020-06-10] MEDS: PANTOPRAZOLE 40 MG TAB PO SCH (10:52)
[2020-06-10 12:32] VITALS: BP 127/79
--- NOTE | 2020-06-10 12:45 | Discharge Summary ---
Providers - Providers Date of Admission: 06/04/20 23:47 Date of discharge: 06/10/20 Attending physician: SCOTT MEJIA 06/05/20 Consult to Cardiac Rehabilitation [CONS] Routine Reason For Exam: Phase I 06/06/20 09:32 Consult to Physician [CONS] Routine Comment: Consulting Provider: DG MONREAL Physician Instructions: Reason For Exam: severe abdominal pain Primary care physician: DRUG WORKER Hospitalization Condition: Stable Hospital course: This is a 70-year-old female with nephrolithiasis, chronic pain, peptic ulcer and neuropathy who presented to the emergency department on 06/05 with complaints of chest pain, shortness of breath, abdominal pain, constipation, and nausea. Her chest pain is rated at 10/10 located in the left chest and midsternal which is associated with shortness of breath for about a week. Abdominal pain generalized added 10/10 and states that she has not had a bowel movement for 1 week with worsening nausea. Work-up in the emergency department included cardiac enzymes which were negative and a CT abdomen/pelvis which showed no acute intra-abdominal abnormality. Patient was admitted to the hospitalist service for further work-up with consults to GI. Patient was scheduled for a stress test however it was canceled due to recent negative cardiac work-up. Her CT abdomen and pelvis, CTA chest is unremarkable and labs were unremarkable on admit but she still complaining severe abdominal pain and her pain medications to morphine to Dilaudid, and ketorolac, and her KUB was benign. She still complains of severe pain and additional imaging was obtained and GI was consulted. Her KUB showed nonspecific gas patterns with no definite obstruction. On 06/07 CT abdomen/pelvis was ordered per GI recommendation which was benign also and her daughter was updated. A HIDA scan was obtained which showed findings suggestive of common duct stone. An EGD and MRCP were obtained. The EGD showed pyloric stenosis and mild retained food in the fundus of the stomach and was dilated with a balloon and then biopsy was obtained which showed mild active chronic inflammation and fibrinous exudate debris is consistent with the ulcer bed which was negative for H. pylori but positive for intestinal metaplasia but negative for dysplasia or malignancy. An MRCP was obtained which showed gallbladder sludge without cortical contact dialysis or biliary dilation. Patient will be discharged today. She will need to follow-up with her primary care physician within 5 to 7 days for repeat blood work. She will need to follow-up with GI within 1 to 2 weeks of discharge. Patient's daughter, Jimbo at [phone] was updated and all questions were answered. Patient's daughter agrees to obtain follow-up visits with PCP and GI. Patient's daughter also informed the patient will need to avoid all NSAIDs. Assessment and plan: Intractable abdominal pain Patient with decreased p.o. 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 -06/05 KUB shows nonspecific bowel pattern with no evidence of obstruction -06/07 CTA abdomen/pelvis shows small accessory right renal artery, small right femoral hernia containing a short segment of small bowel without obstruction of admission, moderate sludge in the gallbladder, hysterectomy -06/09 HIDA scan shows gallbladder uptake of the contrast however gallbladder never emptied and there was no activity visualized within the GI tract which is suggestive of common duct stone consider ERCP or MRCP -CLD, advance as tolerated -06/09 EGD shows 1 cm ulcer at the prepylorus biopsy of margin, pyloric stenosis with mild retained food in the fundus of stomach s/p 13.5 mm balloon dilation, normal duodenum and normal proximal stomach/proximal esophagus -06/09 Antrum, ulcer, biopsy: antral type mucosa with mild active chronic inflammation and fibrinoexudate debris consistent with ulcer bed, Negative for H. pylori type organisms by immunohistochemical stain, Positive for intestinal metaplasia, Negative for dysplasia or malignancy -Continue Protonix daily -Avoid all NSAIDs -06/09 MRCP shows gallbladder sludge, no choledocholithiasis or biliary dilation Severe protein caloric malnutrition Dietary consult Start patient clear liquid diet to see if she tolerates diet Leukopenia -Patient presented with a WBC of 7.3 -12/3 WBC 4.6 -f/u with PCP within 5-7 days for a repeat CBC Hyperlipidemia -06/05 lipid panel triglyceride 38, cholesterol 210, LDL 152, HDL 61 -Statin therapy Hypernatremic -Patient presented with a sodium of 145 -2/3 sodium 134 -Trend BMP -f/u with PCP within 5-7 days for a repeat BMP Hypokalemic, resolved -06/05 potassium 3.3, 06/07 potassium 2.9 at 0641, 06/07 potassium 3.5 -2 potassium 3.7 -Trend BMP -Repeat as needed -S/p patient with IV and MIVF with IV Chest pain -Ruled out ACS Troponins negative Aspirin, nitroglycerin. 06/04 CTA chest shows no evidence of acute PTE, mild coronary artery calcification, mild scarring of bilateral lung apices minimal subsegmental atelectasis in bilateral lower lobes. Cardiac stress test was canceled by cardiology, patient had a stress test recently which was negative. Information on the chart No additional cardiac work-up is required Disposition: DC-01 TO HOME OR SELFCARE Time spent for discharge: 35 Core Measure Documentation - Palliative Care Palliative Care/ Comfort Measures: Not Applicable - Core Measures Any of the following diagnoses?: none Exam - Constitutional Vitals: Temp Pulse Resp BP Pulse Ox 97.3 F L 79 16 127/79 99 06/10/20 12:06/10/20 12:06/10/20 12:04 06/10/20 12:06/10/20 12:04 General appearance: Present: mild distress - EENT Eyes: Present: PERRL, EOM intact ENT: hearing decreased, poor dentition - Neck Neck: Present: normal ROM - Respiratory Respiratory effort: normal Respiratory: bilateral: CTA - Cardiovascular Rhythm: regular Heart Sounds: Present: S1 & S2. Absent: systolic murmur, diastolic murmur - Extremities Extremities: no ischemia, pulses intact, pulses symmetrical, No edema, normal temperature, normal color, Full ROM Peripheral Pulses: within normal limits - Abdominal General gastrointestinal: Present: soft, non-tender, non-distended, normal bowel sounds - Integumentary Integumentary: Present: clear, warm, dry - Musculoskeletal Musculoskeletal: strength equal bilaterally - Psychiatric Psychiatric: appropriate mood/affect, cooperative - Neurologic Neurologic: CNII-XII intact, no focal deficits, moves all extremities - Allied Health Allied health notes reviewed: nursing Plan Activity: advance as tolerated Diet: low fat, advance as tolerated, other (Dietary supplementation) Additional Instructions: Contact your primary care physician or report to emergency department if you experience worsening symptoms. Avoid all nonsteroidal anti-inflammatory drugs including Goody's powder. Follow-up with your primary care physician within 5 to 7 days for repeat labs. Follow up with: PRIMARY CAREMD [Primary Care Provider] - 7 Days WILBUR ESPARZA MD [Staff Physician] - 7 Days Prescriptions: Pantoprazole [Protonix TAB] 40 mg PO QDAY #30 tablet
[2020-06-10] MEDS ORDERED: MAGNESIUM HYDROXIDE (MOM) ORAL LIQD UDC PO PRN (12:55)
[2020-06-10] MEDS ORDERED: DOCUSATE SODIUM 100 MG CAP PO SCH (13:00)
[2020-06-10] MEDS: GABAPENTIN 100 MG CAP PO SCH (14:05)
--- NOTE | 2020-06-10 17:11 | Post Anesthesia Evaluation ---
- Post Anesthesia Evaluation Patient Participated: Yes Airway Patent: Yes Stable Respiratory Function: Yes Nausea/Vomiting: No Temp > 96.8F: Yes Pain Manageable: Yes Adequeate Hydration: Yes Anesthesia Complications: No Other Comments: POD1 s/p EGD under MAC. Evaluated prior to d/c.
[2020-06-15] MEDS ORDERED: ALENDRONATE SODIUM 70 MG TAB PO SCH (10:00)
== END 2020-06-10 16:54 | disposition home or self-care (01) ==
LOC: ED 18:31 → 4A 23:47 → INTOOBSV 06-07 08:51 → OBSVTOIN 06-07 08:51
PROVIDERS: ADMIT Hospitalist; ATTEND Internal Medicine
DX: R07.89 Other chest pain (principal); R06.02 Shortness of breath; R10.84 Generalized abdominal pain; K59.00 Constipation, unspecified; R11.0 Nausea; E46 Unspecified protein-calorie malnutrition; Z87.442 Personal history of urinary calculi; Z98.890 Other specified postprocedural states; Z90.710 Acquired absence of both cervix and uterus; Z68.1 Body mass index [BMI] 19.9 or less, adult
CPT/HCPCS: 36415; 43239; 43245; 71045; 71275; 74018; 74174; 74177; 74181; 78226; 80048; 80053; 80061; 81001; 83690; 84132; 84484; 85025; 85027; 87086; 88305; 88342; 93005; 93880; 96361; 96365; 96366; 96367; 96368; 96372; 96375; 96376; 99291; A9270; A9537; C1726; G0378; J0696; J1170; J1644; J1885; J2270; J2405; J2704; J2765; J3480; J7030; Q9967; 90686; J2805

== ENCOUNTER 2021-02-09 11:40 | Emergency (ER) | payer MEDICARE ==
[2021-02-09] MEDS ORDERED: SODIUM CHLORIDE 0.9% 1000 ML 1,000 ML IV ONE (13:07)
[2021-02-09 14:13] LABS: Hemoglobin 14.7 gm/dl (10.1-14.3); Mean Corpuscular HGB Conc 33 % (30-34); Mean Corpuscular Volume 87 fl (79-97); Platelet Count 386 K/mm3 (140-440); Red Blood Count 5.14 M/mm3 (3.65-5.03); Red Cell Distribution Width 14.1 % (13.2-15.2)
[2021-02-09 14:27] LABS: Basophils % (Auto) 0.4 % (0.0-1.8); Eosinophils % (Auto) 0.4 % (0.0-4.3); Lymphocytes # (Auto) 0.9 K/mm3 (1.2-5.4); Lymphocytes % (Auto) 17.5 % (13.4-35.0); Monocytes # (Auto) 0.6 K/mm3 (0.0-0.8); Monocytes % (Auto) 11.4 % (0.0-7.3)
[2021-02-09 16:52] LABS: BUN/Creatinine Ratio TNR; Blood Urea Nitrogen TNR mg/dL (7-17)
[2021-02-09 16:53] LABS: Calcium TNR mg/dL (8.4-10.2); Hemolysis Index TNR
[2021-02-09 18:01] LABS: Blood Urea Nitrogen 9 mg/dL (7-17); Calcium 8.5 mg/dL (8.4-10.2); Hemolysis Index 21
[2021-02-09 18:10] LABS: BUN/Creatinine Ratio 30
[2021-02-09 18:22] LABS: Bacteria,Urine 1+ /HPF (Negative); Bilirubin,Urine NEG (Negative); Blood,Urine NEG (Negative); Color,Urine Amber (Yellow); Mucus,Urine FEW /HPF
--- NOTE | 2021-02-09 18:43 | Emergency Department Report ---
ED General Adult HPI - General Chief complaint: Weakness Stated complaint: GENERAL ILLNESS Time Seen by Provider: 02/09/21 12:58 Source: patient Mode of arrival: Stretcher Limitations: No Limitations - History of Present Illness Severity scale (0 -10): 0 - Related Data Home Medications Medication Instructions Recorded Confirmed Last Taken Alendronate Sodium [Fosamax] 70 mg PO QWEEK 05/15/15 06/06/20 1 Day Ago ~09/17/15 70 Gabapentin 100 mg PO BID 06/06/20 06/06/20 Unknown traMADoL 50 mg PO Q6HR PRN 06/08/20 06/08/20 Unknown Previous Rx's Medication Instructions Recorded Last Taken Type LORazepam [Ativan] 0.5 mg PO Q8H PRN tablet 06/10/20 Unknown Rx Multivitamin Tab W-MINERAL 1 each PO QDAY tablet 06/10/20 Unknown Rx [Multiple Vitamin/Mineral (Theragran M)] Pantoprazole [Protonix TAB] 40 mg PO QDAY #30 tablet 06/10/20 Unknown Rx Allergies Allergy/AdvReac Type Severity Reaction Status Date / Time No Known Allergies Allergy Verified 07/29/14 21:24 ED Review of Systems ROS: Stated complaint: GENERAL ILLNESS Other details as noted in HPI ED Past Medical Hx - Past Medical History Hx Hypertension: No Hx Heart Attack/AMI: No (recent normal perfusion scan per cardiology notes) Hx Liver Disease: No Hx Renal Disease: No Hx Arthritis: Yes Hx Kidney Stones: Yes Additional medical history: chronic pain. peptic ulcers. Neuropathy - Surgical History Additional Surgical History: right knee, hysterectomy, left ovarian cyst removal - Social History Smoking Status: Former Smoker Substance Use Type: None - Medications Home Medications: Home Medications Medication Instructions Recorded Confirmed Last Taken Type Alendronate Sodium [Fosamax] 70 mg PO QWEEK 05/15/15 06/06/20 1 Day Ago History ~09/17/15 70 Gabapentin 100 mg PO BID 06/06/20 06/06/20 Unknown History traMADoL 50 mg PO Q6HR PRN 06/08/20 06/08/20 Unknown History LORazepam [Ativan] 0.5 mg PO Q8H PRN tablet 06/10/20 Unknown Rx Multivitamin Tab W-MINERAL 1 each PO QDAY tablet 06/10/20 Unknown Rx [Multiple Vitamin/Mineral (Theragran M)] Pantoprazole [Protonix TAB] 40 mg PO QDAY #30 tablet 06/10/20 Unknown Rx ED Physical Exam - General Limitations: No Limitations ED Course Vital Signs 02/09/21 02/09/21 02/09/21 11:48 11:55 12:24 Temperature 98.1 F 98.1 F Pulse Rate 84 121 H Respiratory 18 18 Rate Blood Pressure 122/72 Blood Pressure 100/80 [Right] O2 Sat by Pulse 98 92 95 Oximetry 02/09/21 02/09/21 02/09/21 12:26 12:36 12:38 Temperature 98.5 F 98.1 F Pulse Rate 77 80 72 Respiratory 12 24 12 Rate Blood Pressure 110/63 Blood Pressure 103/64 [Right] O2 Sat by Pulse 95 93 95 Oximetry ED Medical Decision Making - Lab Data Result diagrams: 02/09/21 13:15 02/09/21 17:09 Critical care attestation.: If time is entered above; I have spent that time in minutes in the direct care o f this critically ill patient, excluding procedure time. ED Disposition Clinical Impression: Generalized weakness, Dementia Disposition: 01 HOME / SELF CARE / HOMELESS Is pt being admited?: No Does the pt Need Aspirin: No Condition: Stable Instructions: Dementia Caregiver Guide Additional Instructions: Patient did receive some IV fluids however no evidence of moderate or severe dehydration was found. Laboratory studies were within acceptable limits. No evidence of a urinary tract infection. There is some concern with dementia. Patient seemed to have difficulty recalling information and answering certain questions. Please have her primary care physician do formal dementia testing. Referrals: ROBERTO DEAN MD [Primary Care Provider] - 3-5 Days Time of Disposition: 18:43
[2021-02-09 19:17] VITALS: BP 127/73
== END 2021-02-09 19:17 | disposition home or self-care (01) ==
LOC: ED 11:40
DX: R53.1 Weakness (principal); F03.90 Unspecified dementia, unspecified severity, without behavioral disturbance, psychotic disturbance, mood disturbance, and anxiety; M19.90 Unspecified osteoarthritis, unspecified site; G62.9 Polyneuropathy, unspecified; Z98.890 Other specified postprocedural states; Z87.891 Personal history of nicotine dependence
CPT/HCPCS: 36415; 80048; 81001; 85025; 96360; 96361; 99284; J7030